=== PATIENT | female | born 1940 | race Caucasian/White ===

== ENCOUNTER 2017-08-28 12:20 | Inpatient (IN) | payer MEDICARE, OTHER ==
[~2017-08-28] VITALS: Ht 167.6 cm; Wt 82.0 kg
[2017-08-28] VITALS (11 sets, daily range): BP systolic 142–176; BP diastolic 66–99
[2017-08-28] MEDS ORDERED: aspirin 81mg tab.chew PO ONE (12:30)
[2017-08-28 13:02] LABS: BASOPHILS % (AUTO) 0.3 % (0-1); EOSINOPHILS # (AUTO) 0.2 X10'3 (0-0.9); EOSINOPHILS % (AUTO) 1.8 % (0-6); HEMATOCRIT 42.4 % (35.0-45.0); LYMPHOCYTES # (AUTO) 1.6 X10'3 (1.1-4.8); LYMPHOCYTES % (AUTO) 19.1 % (21-51); MEAN CORPUSCULAR HEMOGLOBIN 31.5 PG (27.0-31.0); MEAN CORPUSCULAR HGB CONC 35.3 % (33.0-36.5); MEAN CORPUSCULAR VOLUME 89.2 FL (78-98); MONOCYTES # (AUTO) 0.5 X10'3 (0-0.9); MONOCYTES % (AUTO) 5.6 % (2-12); NEUTROPHILS # (AUTO) 6.3 X10'3 (1.8-7.7); NEUTROPHILS % (AUTO) 73.2 % (42-75); PLATELET COUNT 224 X10'3 (140-440); RED BLOOD COUNT 4.76 X10'6 (4.20-5.60); RED CELL DISTRIBUTION WIDTH 12.6 % (11.5-14.5); WHITE BLOOD COUNT 8.6 X10'3 (4.5-11.0)
[2017-08-28 13:12] LABS: PARTIAL THROMBOPLASTIN TIME 27 SECONDS (22-32); PROTHROMBIN TIME 10.1 SECONDS (9.0-12.0)
[2017-08-28 13:24] LABS: ALANINE AMINOTRANSFERASE 36 U/L (12-78); ALBUMIN 3.9 G/DL (3.4-5.0); ALBUMIN/GLOBULIN RATIO 1.1 (1.1-1.5); ALKALINE PHOSPHATASE 67 IU/L (46-116); ANION GAP 10 (8-16); ASPARTATE AMINO TRANSFERASE 49 U/L (10-37); BILIRUBIN,TOTAL 0.4 MG/DL (0.1-1.0); BLOOD UREA NITROGEN 17 MG/DL (7-18); CALCIUM 10.1 MG/DL (8.5-10.1); CHLORIDE 106 MMOL/L (99-107); GLUCOSE 97 MG/DL (70-104); POTASSIUM 3.7 MMOL/L (3.5-5.1); SODIUM 145 MMOL/L (135-145); TOTAL CARBON DIOXIDE 29.3 MMOL/L (24-32); TOTAL PROTEIN 7.6 G/DL (6.4-8.2); eGFR 54 ML/MIN
[2017-08-28] MEDS ORDERED: aspirin 325mg tablet PO ONE (13:25)
[2017-08-28] MEDS ORDERED: enoxaparin 100mg/ml syringe SUBCUT ONE (13:25)
[2017-08-28] MEDS ORDERED: metoprolol tartrate 50mg tablet PO ONE (13:30)
[2017-08-28] MEDS ORDERED: metoprolol tartrate 1mg/ml inj IV ONE (13:30)
[2017-08-28] MEDS ORDERED: nitroGLYCERIN 0.4mg/hour patch TD ONE (13:35)
[2017-08-28] MEDS ORDERED: bisacodyl 10mg suppository rectal RC PRN (14:30)
[2017-08-28] MEDS ORDERED: acetaminophen 325mg tablet PO PRN (14:30)
[2017-08-28] MEDS ORDERED: magnesium Cl slow-release 64mg tablet PO PRN (14:30)
[2017-08-28] MEDS ORDERED: magnesium 2GM in 50ml NS 50 ML IV PRN (14:30)
[2017-08-28] MEDS ORDERED: magnesium 4gm in 100ml NS 100 ML IV PRN (14:30)
[2017-08-28] MEDS ORDERED: potassium Cl 20 mEq SR tablet PO PRN ×2 (14:30)
[2017-08-28] MEDS ORDERED: potassium Cl 40MEQ/NS 500ml 500 ML IV PRN ×2 (14:30)
[2017-08-28] MEDS ORDERED: ondansetron/PF 4mg/2ml inj IV PRN (14:30)
[2017-08-28] MEDS ORDERED: magnesium hydroxide 30ml (MOM) UD suspension PO PRN (14:30)
[2017-08-28] MEDS ORDERED: mag hydrox/Alum hydrox/simeth 30ml oral suspension PO PRN (14:30)
[2017-08-28] MEDS ORDERED: morphine 4 MG/ML inj SYRINge IV PRN ×2 (14:30)
[2017-08-28] MEDS ORDERED: nitroGLYCERIN-Tridil 50MG/D5W 250 ML IV SCH (14:34)
[2017-08-28] MEDS ORDERED: LIDOcaine 1%/PF (10mg/ml) 5ml vial ONE (15:23)
[2017-08-28] MEDS ORDERED: iohexol 350MG/ML 100ml bottle IV ONE ×2 (15:23→16:10)
[2017-08-28] MEDS ORDERED: midazolam 2 mg/2 ml injection ONE (15:45)
[2017-08-28] MEDS ORDERED: diphenhydrAMINE 50 mg/ml inj ONE (15:45)
[2017-08-28] MEDS ORDERED: heparin 1,000unit/ml 10ml vial 10 ML ONE (16:16)
[2017-08-28] MEDS ORDERED: HYDROcodone/acetaminophen 10/325mg tab PO PRN (17:15)
[2017-08-28] MEDS ORDERED: normal saline 1000ml 1,000 ML IV SCH (17:15)
[2017-08-28] MEDS ORDERED: proCHLORperazine 10 MG/2 ml inj IV PRN (17:15)
[2017-08-28] MEDS ORDERED: nitroGLYCERIN 0.4mg SUBLingual tab SL PRN (17:15)
[2017-08-28] MEDS ORDERED: HYDROcodone/acetaminophen 5mg/325mg tablet PO PRN (17:15)
[2017-08-28] MEDS ORDERED: OXAZEpam 15mg capsule PO PRN (17:15)
[2017-08-28] MEDS: metoprolol tartrate 25mg tablet PO SCH (18:18)
[2017-08-28] MEDS ORDERED: MESSAGE TO NURSING PO ONE ×4 (19:05)
[2017-08-28] MEDS ORDERED: insulin regular, human inj. 100 UNITS in normal saline 100ml IV soln 100 ML IV SCH ×2 (19:05)
[2017-08-28] MEDS ORDERED: heparin 10,000 units/1 ML INJ IV PRN (19:25)
[2017-08-28] MEDS: mupirocin 2% ointment 22GM NS SCH (20:00)
[2017-08-28] MEDS: enoxaparin 30mg/0.3ml syringe SUBCUT SCH (20:00)
[2017-08-28] MEDS ORDERED: atorvastatin 20mg tablet PO SCH (20:00)
[2017-08-28] MEDS: docusate sod 100mg capsule PO SCH (20:00)
[2017-08-28] MEDS: enoxaparin 40mg/0.4ml syringe SUBCUT SCH (20:00)
[2017-08-28 20:33] LABS: HEMATOCRIT 40.4 % (35.0-45.0); HEMOGLOBIN 13.8 g/dl (12.0-16.0); MEAN CORPUSCULAR HEMOGLOBIN 31.1 PG (27.0-31.0); MEAN CORPUSCULAR HGB CONC 34.2 % (33.0-36.5); MEAN CORPUSCULAR VOLUME 90.9 FL (78-98); MEAN PLATELET VOLUME 9.7 FL (7.4-10.4); PLATELET COUNT 222 X10'3 (140-440); RED BLOOD COUNT 4.45 X10'6 (4.20-5.60); RED CELL DISTRIBUTION WIDTH 12.8 % (11.5-14.5); WHITE BLOOD COUNT 9.6 X10'3 (4.5-11.0)
[2017-08-28 20:42] LABS: ALBUMIN 3.5 G/DL (3.4-5.0); ANION GAP 11 (8-16); BLOOD UREA NITROGEN 14 MG/DL (7-18); BUN/CREATININE RATIO 16.9 (6.6-38.0); CALCIUM 9.3 MG/DL (8.5-10.1); CHLORIDE 107 MMOL/L (99-107); CREATININE 0.83 MG/DL (0.40-0.90); GLUCOSE 97 MG/DL (70-104); POTASSIUM 3.6 MMOL/L (3.5-5.1); SODIUM 143 MMOL/L (135-145); TOTAL CARBON DIOXIDE 25.4 MMOL/L (24-32); eGFR 67 ML/MIN
[2017-08-28 20:44] LABS: HEMOGLOBIN A1C 5.1 % (4.5-6.2)
[2017-08-28 20:45] LABS: PARTIAL THROMBOPLASTIN TIME 33 SECONDS (22-32); PROTHROMBIN TIME 10.5 SECONDS (9.0-12.0)
[2017-08-28] MEDS: pantoprazole 40 MG vial IV SCH (22:29)
[2017-08-29] VITALS (16 sets, daily range): BP systolic 91–165; BP diastolic 39–88
[2017-08-29] MEDS: potassium cl 20mEq in 1/2 NS 1,000 ML IV SCH ×2 (00:19→09:37)
[2017-08-29] MEDS ORDERED: nitroGLYCERIN-Tridil 50MG/D5W 250 ML IV SCH (04:00)
[2017-08-29 05:09] LABS: BASOPHILS % (AUTO) 0.2 % (0-1); EOSINOPHILS # (AUTO) 0.2 X10'3 (0-0.9); EOSINOPHILS % (AUTO) 2.2 % (0-6); HEMATOCRIT 38.7 % (35.0-45.0); HEMOGLOBIN 13.7 g/dl (12.0-16.0); LYMPHOCYTES # (AUTO) 1.6 X10'3 (1.1-4.8); MEAN CORPUSCULAR HEMOGLOBIN 31.8 PG (27.0-31.0); MEAN CORPUSCULAR HGB CONC 35.3 % (33.0-36.5); MEAN CORPUSCULAR VOLUME 90.1 FL (78-98); MEAN PLATELET VOLUME 9.9 FL (7.4-10.4); MONOCYTES # (AUTO) 0.6 X10'3 (0-0.9); MONOCYTES % (AUTO) 6.7 % (2-12); NEUTROPHILS # (AUTO) 6.5 X10'3 (1.8-7.7); NEUTROPHILS % (AUTO) 72.9 % (42-75); PLATELET COUNT 189 X10'3 (140-440); RED BLOOD COUNT 4.29 X10'6 (4.20-5.60); RED CELL DISTRIBUTION WIDTH 12.4 % (11.5-14.5); WHITE BLOOD COUNT 8.9 X10'3 (4.5-11.0)
[2017-08-29 05:19] LABS: PROTHROMBIN TIME 10.6 SECONDS (9.0-12.0)
[2017-08-29 05:27] LABS: ALBUMIN 3.2 G/DL (3.4-5.0); ANION GAP 9 (8-16); BLOOD UREA NITROGEN 14 MG/DL (7-18); BUN/CREATININE RATIO 13.7 (6.6-38.0); CHLORIDE 107 MMOL/L (99-107); CHOL/HDL RATIO 4.3 (0.00-4.99); CHOLESTEROL 194 MG/DL (0-200); CREATININE 1.02 MG/DL (0.40-0.90); GLUCOSE 96 MG/DL (70-104); HDL CHOLESTEROL 45 MG/DL (35-60); LDL CHOLESTEROL 112 MG/DL (50-100); MAGNESIUM 1.6 MG/DL (1.5-2.4); SODIUM 144 MMOL/L (135-145); TOTAL CARBON DIOXIDE 28.5 MMOL/L (24-32); TRIGLYCERIDES 197 MG/DL (20-135); eGFR 53 ML/MIN
[2017-08-29] MEDS ORDERED: ringers solution, lacted 1,000 ML IV ONE (07:06)
[2017-08-29] MEDS: metoprolol tartrate 25mg tablet PO SCH (07:15)
[2017-08-29] MEDS: pantoprazole 40 MG vial IV SCH (07:15)
[2017-08-29] MEDS ORDERED: albumin (human) 25% 100 ML IV solution IV ONE (08:00)
[2017-08-29] MEDS ORDERED: heparin 10,000 units/1 ML INJ ONE ×2 (08:00)
[2017-08-29] MEDS ORDERED: K and/or MAG REPLACEMENT MC SCH (08:00)
[2017-08-29] MEDS ORDERED: sodium bicarbonate (8.4%) 1 mEq/ml syringe ONE (08:00)
[2017-08-29] MEDS ORDERED: potassium Cl 2 mEq/ml inj IV ONE (08:00)
[2017-08-29] MEDS: enoxaparin 30mg/0.3ml syringe SUBCUT SCH (08:00)
[2017-08-29] MEDS ORDERED: aspirin 81mg tablet.DR PO SCH (08:00)
[2017-08-29] MEDS ORDERED: phenylephrine 10mg/ml inj IV ONE ×2 (08:00→11:59)
[2017-08-29] MEDS: docusate sod 100mg capsule PO SCH ×2 (08:00→20:00)
[2017-08-29] MEDS: enoxaparin 40mg/0.4ml syringe SUBCUT SCH (08:00)
[2017-08-29] MEDS ORDERED: LIDOcaine 2% (20 mg/ml) 5ml cardiac syringe ONE (08:00)
[2017-08-29] MEDS ORDERED: heparin 1,000 units/ml 10ml inj ONE (08:00)
[2017-08-29] MEDS ORDERED: papaverine 30 mg/ml 2ml inj. ONE (08:00)
[2017-08-29] MEDS ORDERED: tranexamic acid 100mg/ml inj. ONE ×2 (08:00→09:23)
[2017-08-29] MEDS ORDERED: magnesium sulf 1 GM/2 ML ONE (08:00)
[2017-08-29 08:20] LABS: ABG BASE EXCESS 2.2 mmol/L (-2.0-3.0); ABG HCO3 26.3 mmol/L (22.0-26.0); ABG OXYGEN SATURATION 93.3 % (95-98); ABG PCO2 (T) 39.4 mmHg (32.0-45.0); ABG PH (T) 7.443 (7.350-7.450); ABG PO2 (T) 65.3 mmHg (83-108); ALLEN'S TEST Positive; FCOHb 0.9 % (0.5-1.5); FMetHb 0.3 % (0.3-1.12); FO2Hb 92.2 % (94-100)
[2017-08-29] MEDS ORDERED: MESSAGE TO NURSING PO ONE (10:00)
[2017-08-29] MEDS: mupirocin 2% ointment 22GM NS SCH (11:29)
[2017-08-29] MEDS ORDERED: famotidine 20mg tablet PO ONE (11:50)
[2017-08-29] MEDS ORDERED: LORazepam 2 mg/ml vial IV ONE (11:50)
[2017-08-29] MEDS: insulin regular, human inj. 100 UNITS in normal saline 100ml IV soln 100 ML IV SCH ×2 (11:55)
[2017-08-29] MEDS ORDERED: MIDAZolam 1mg/ml 10ml vial ONE (11:58)
[2017-08-29] MEDS ORDERED: SUFENTANIL CITRATE 50 MCG/ML 2ml ampule IV ONE (11:58)
[2017-08-29] MEDS ORDERED: rocuronium 10mg/ml inj IV ONE ×2 (11:59→17:01)
[2017-08-29] MEDS ORDERED: LIDOcaine 2% (20mg/ml) 5ml vial ONE (11:59)
[2017-08-29] MEDS ORDERED: etomidate 2mg/ml inj. ONE (11:59)
[2017-08-29 12:46] LABS: ABG BASE EXCESS -1.6 mmol/L (-2.0-3.0); ABG HCO3 22.9 mmol/L (22.0-26.0); ABG OXYGEN SATURATION 99.3 % (95-98); ABG PCO2 37.7 mmHg (35.0-45.0); ABG PH 7.401 (7.350-7.450); CL (ABG) 109 mmol/L (99-107); FCOHb 0.9 % (0.5-1.5); FMetHb 0.4 % (0.3-1.12); GLUCOSE (ABG) 94 mg/dl (70-105); IONIZED CA (ABG) 1.16 mmol/L (1.03-1.32); K (ABG) 3.5 mmol/L (3.3-5.1); NA (ABG) 138 mmol/L (135-145); TOTAL HEMOGLOBIN 12.9 G/dl (12.0-16.0)
[2017-08-29] MEDS ORDERED: tranexamic acid inj. 750 MG in normal saline 100ml IV soln 92.5 ML IV ONE (12:50)
[2017-08-29] MEDS ORDERED: heparin 10,000 units/1 ML INJ IR ONE (12:59)
[2017-08-29] MEDS ORDERED: papaverine 30 mg/ml 2ml inj. IA ONE (13:00)
[2017-08-29] MEDS ORDERED: vancomycin/NS 1 GM ADD-VANTAGE 250 ML IV ONE (13:00)
[2017-08-29] MEDS ORDERED: dextrose 50%-water 50ml dispensing syringe IV PRN ×2 (13:00→19:25)
[2017-08-29 13:25] LABS: ABG BASE EXCESS VENOUS -3.9 mmol/L; ABG PCO2 VENOUS 49.3 mmHg; ABG PO2 VENOUS 41.1 mmHg; CL (ABG) 108 mmol/L (99-107); FCOHb VENOUS 1.2 %; FHHb VENOUS 25.6 %; FMetHb VENOUS 0.3 %; FO2Hb VENOUS 72.9 %; GLUCOSE (ABG) 104 mg/dl (70-105); IONIZED CA (ABG) 1.16 mmol/L (1.03-1.32); K (ABG) 3.3 mmol/L (3.3-5.1); NA (ABG) 140 mmol/L (135-145); TOTAL HEMOGLOBIN 12.8 G/dl (12.0-16.0)
[2017-08-29 13:31] LABS: ACT @ 1.70 U 307 SEC (193-297); ACT @ 2.84 U 418 SEC (260-420); BASELINE ACT 155 SEC (101-148); PATIENT WEIGHT 72.0k KG
[2017-08-29 13:50] LABS: ABG BASE EXCESS -1.3 mmol/L (-2.0-3.0); ABG HCO3 23.3 mmol/L (22.0-26.0); ABG PCO2 38.6 mmHg (35.0-45.0); ABG PH 7.399 (7.350-7.450); ABG PO2 400.5 mmHg (60.0-100.0); CL (ABG) 107 mmol/L (99-107); FCOHb 0.2 % (0.5-1.5); FMetHb 0.3 % (0.3-1.12); FO2Hb 98.5 % (94-100); GLUCOSE (ABG) 106 mg/dl (70-105); IONIZED CA (ABG) 1.01 mmol/L (1.03-1.32); K (ABG) 4.6 mmol/L (3.3-5.1); NA (ABG) 139 mmol/L (135-145); TOTAL HEMOGLOBIN 9.8 G/dl (12.0-16.0)
[2017-08-29 14:11] LABS: ABG BASE EXCESS VENOUS -1.6 mmol/L; ABG HCO3 VENOUS 23.4 mmol/L; ABG PCO2 VENOUS 40.8 mmHg; ABG PO2 VENOUS 50.3 mmHg; CL (ABG) 107 mmol/L (99-107); FCOHb VENOUS 0.9 %; FHHb VENOUS 13.7 %; FMetHb VENOUS 0.1 %; FO2Hb VENOUS 85.3 %; GLUCOSE (ABG) 106 mg/dl (70-105); IONIZED CA (ABG) 1.07 mmol/L (1.03-1.32); K (ABG) 5.4 mmol/L (3.3-5.1); NA (ABG) 138 mmol/L (135-145)
[2017-08-29] MEDS: insulin Lispro (HumaLOG) vial - multi-dose SQ SCH ×2 (14:14→14:15)
[2017-08-29] MEDS ORDERED: ipratropium/albuterol 3ml nebule IH PRN (14:15)
[2017-08-29 14:40] LABS: ABG BASE EXCESS VENOUS -1.9 mmol/L; ABG HCO3 VENOUS 22.5 mmol/L; ABG PCO2 VENOUS 36.8 mmHg; CL (ABG) 107 mmol/L (99-107); FCOHb VENOUS 1.2 %; FHHb VENOUS 17.2 %; FMetHb VENOUS 0.1 %; FO2Hb VENOUS 81.5 %; GLUCOSE (ABG) 103 mg/dl (70-105); IONIZED CA (ABG) 1.03 mmol/L (1.03-1.32); K (ABG) 5.1 mmol/L (3.3-5.1); NA (ABG) 139 mmol/L (135-145); TOTAL HEMOGLOBIN 9.2 G/dl (12.0-16.0)
[2017-08-29 14:40] LABS: ABG BASE EXCESS -1.4 mmol/L (-2.0-3.0); ABG HCO3 22.4 mmol/L (22.0-26.0); ABG OXYGEN SATURATION 99.3 % (95-98); ABG PH 7.437 (7.350-7.450); ABG PO2 385.9 mmHg (60.0-100.0); CL (ABG) 108 mmol/L (99-107); FMetHb 0.2 % (0.3-1.12); FO2Hb 98.1 % (94-100); GLUCOSE (ABG) 103 mg/dl (70-105); IONIZED CA (ABG) 1.03 mmol/L (1.03-1.32); NA (ABG) 138 mmol/L (135-145)
[2017-08-29 15:30] LABS: ABG BASE EXCESS 1.7 mmol/L (-2.0-3.0); ABG HCO3 26.2 mmol/L (22.0-26.0); ABG OXYGEN SATURATION 98.9 % (95-98); ABG PCO2 40.5 mmHg (35.0-45.0); ABG PH 7.428 (7.350-7.450); ABG PO2 375.9 mmHg (60.0-100.0); CL (ABG) 109 mmol/L (99-107); FCOHb 0.4 % (0.5-1.5); FMetHb 0.4 % (0.3-1.12); FO2Hb 98.1 % (94-100); GLUCOSE (ABG) 126 mg/dl (70-105); IONIZED CA (ABG) 1.23 mmol/L (1.03-1.32); K (ABG) 4.9 mmol/L (3.3-5.1); NA (ABG) 136 mmol/L (135-145); TOTAL HEMOGLOBIN 8.8 G/dl (12.0-16.0)
[2017-08-29] MEDS ORDERED: OMEP-50 (15:45)
[2017-08-29] MEDS ORDERED: OMEP40CA37 (15:45)
[2017-08-29] MEDS ORDERED: MELO-100 (15:45)
[2017-08-29] MEDS ORDERED: ESTR1TAB28 (15:45)
[2017-08-29] MEDS ORDERED: MULT-955 PO (15:46)
[2017-08-29 16:25] LABS: ABG HCO3 24.6 mmol/L (22.0-26.0); ABG OXYGEN SATURATION 99.1 % (95-98); ABG PCO2 45.2 mmHg (35.0-45.0); ABG PH 7.354 (7.350-7.450); ABG PO2 360.5 mmHg (60.0-100.0); CL (ABG) 112 mmol/L (99-107); FCOHb 0.5 % (0.5-1.5); FMetHb 0.6 % (0.3-1.12); GLUCOSE (ABG) 152 mg/dl (70-105); IONIZED CA (ABG) 1.17 mmol/L (1.03-1.32); K (ABG) 5.3 mmol/L (3.3-5.1); NA (ABG) 138 mmol/L (135-145); TOTAL HEMOGLOBIN 9.1 G/dl (12.0-16.0)
[2017-08-29] MEDS ORDERED: sodium bicarbonate 1 MEQ/1 ml inj ONE ×2 (16:43→18:35)
[2017-08-29] MEDS ORDERED: magnesium 1 GM/2 ML inj ONE (16:43)
[2017-08-29 16:46] LABS: ABG HCO3 21.3 mmol/L (22.0-26.0); ABG OXYGEN SATURATION 98.9 % (95-98); ABG PCO2 39.6 mmHg (35.0-45.0); ABG PH 7.349 (7.350-7.450); ABG PO2 349.9 mmHg (60.0-100.0); CL (ABG) 110 mmol/L (99-107); FCOHb 0.2 % (0.5-1.5); FMetHb 0.4 % (0.3-1.12); FO2Hb 98.3 % (94-100); GLUCOSE (ABG) 140 mg/dl (70-105); IONIZED CA (ABG) 1.19 mmol/L (1.03-1.32); K (ABG) 5.1 mmol/L (3.3-5.1); NA (ABG) 137 mmol/L (135-145); TOTAL HEMOGLOBIN 9.4 G/dl (12.0-16.0)
[2017-08-29 17:20] LABS: ABG BASE EXCESS 0.9 mmol/L (-2.0-3.0); ABG HCO3 25.8 mmol/L (22.0-26.0); ABG OXYGEN SATURATION 98.9 % (95-98); ABG PCO2 42.6 mmHg (35.0-45.0); ABG PO2 345.2 mmHg (60.0-100.0); CL (ABG) 113 mmol/L (99-107); FCOHb 0.6 % (0.5-1.5); FMetHb 0.6 % (0.3-1.12); FO2Hb 97.7 % (94-100); GLUCOSE (ABG) 157 mg/dl (70-105); IONIZED CA (ABG) 1.04 mmol/L (1.03-1.32); K (ABG) 4.6 mmol/L (3.3-5.1); NA (ABG) 140 mmol/L (135-145); TOTAL HEMOGLOBIN 7.6 G/dl (12.0-16.0)
[2017-08-29 18:15] LABS: ABG BASE EXCESS -4.3 mmol/L (-2.0-3.0); ABG HCO3 20.7 mmol/L (22.0-26.0); ABG OXYGEN SATURATION 98.6 % (95-98); ABG PCO2 37.4 mmHg (35.0-45.0); ABG PH 7.361 (7.350-7.450); ABG PO2 193.2 mmHg (60.0-100.0); CL (ABG) 114 mmol/L (99-107); FCOHb 0.7 % (0.5-1.5); FMetHb 0.4 % (0.3-1.12); FO2Hb 97.5 % (94-100); GLUCOSE (ABG) 208 mg/dl (70-105); IONIZED CA (ABG) 1.06 mmol/L (1.03-1.32); K (ABG) 3.4 mmol/L (3.3-5.1); NA (ABG) 143 mmol/L (135-145); TOTAL HEMOGLOBIN 7.9 G/dl (12.0-16.0)
[2017-08-29 18:36] LABS: ABG BASE EXCESS -5.9 mmol/L (-2.0-3.0); ABG HCO3 20.1 mmol/L (22.0-26.0); ABG OXYGEN SATURATION 74.8 % (95-98); ABG PCO2 41.7 mmHg (35.0-45.0); ABG PO2 44.3 mmHg (60.0-100.0); CL (ABG) 114 mmol/L (99-107); FCOHb 1.2 % (0.5-1.5); FMetHb 0.7 % (0.3-1.12); FO2Hb 73.4 % (94-100); GLUCOSE (ABG) 187 mg/dl (70-105); IONIZED CA (ABG) 1.07 mmol/L (1.03-1.32); K (ABG) 3.1 mmol/L (3.3-5.1); NA (ABG) 144 mmol/L (135-145); TOTAL HEMOGLOBIN 7.9 G/dl (12.0-16.0)
[2017-08-29] MEDS ORDERED: morphine /PF 1mg/ml 10ml inj. ONE (19:08)
[2017-08-29 19:17] LABS: BASOPHILS % (AUTO) 0 % (0-1); EOSINOPHILS # (AUTO) 0.1 X10'3 (0-0.9); EOSINOPHILS % (AUTO) 0.4 % (0-6); LYMPHOCYTES # (AUTO) 0.8 X10'3 (1.1-4.8); LYMPHOCYTES % (AUTO) 6.2 % (21-51); MEAN CORPUSCULAR HEMOGLOBIN 31.7 PG (27.0-31.0); MEAN CORPUSCULAR HGB CONC 35.3 % (33.0-36.5); MEAN CORPUSCULAR VOLUME 89.8 FL (78-98); MEAN PLATELET VOLUME 8.8 FL (7.4-10.4); MONOCYTES # (AUTO) 0.6 X10'3 (0-0.9); MONOCYTES % (AUTO) 4.7 % (2-12); NEUTROPHILS # (AUTO) 11.1 X10'3 (1.8-7.7); NEUTROPHILS % (AUTO) 88.7 % (42-75); PLATELET COUNT 78 X10'3 (140-440); RED BLOOD COUNT 2.07 X10'6 (4.20-5.60); RED CELL DISTRIBUTION WIDTH 12.6 % (11.5-14.5); WHITE BLOOD COUNT 12.5 X10'3 (4.5-11.0)
[2017-08-29 19:24] LABS: INR 1.5 INR; PARTIAL THROMBOPLASTIN TIME 37 SECONDS (22-32); PROTHROMBIN TIME 15.2 SECONDS (9.0-12.0)
[2017-08-29] MEDS ORDERED: niCARDipine/sod cl 20mg/200ml 200 ML IV PRN (19:25)
[2017-08-29] MEDS ORDERED: metoclopramide 5 mg/ml inj IV PRN (19:25)
[2017-08-29] MEDS: epiNEPHrine inj 5 MG, calcium chloride inj. 1,000 MG in normal saline 250ml IV soln 250 ML IV SCH (19:25)
[2017-08-29] MEDS ORDERED: normal saline 250ml IV soln 250 ML IV PRN (19:25)
[2017-08-29] MEDS ORDERED: magnesium 4gm in 100ml NS 100 ML IV PRN (19:25)
[2017-08-29] MEDS ORDERED: sodium phosphate inj. 30 MMOL in dextrose 5%-water 250 ML IV PRN (19:25)
[2017-08-29] MEDS ORDERED: magnesium hydroxide 30ml (MOM) UD suspension PO PRN (19:25)
[2017-08-29] MEDS ORDERED: HYDROcodone/acetaminophen 10/325mg tab PO PRN ×2 (19:25)
[2017-08-29] MEDS ORDERED: Neutra Phos packet PO PRN (19:25)
[2017-08-29] MEDS ORDERED: insulin regular, human inj. 100 UNITS in normal saline 100ml IV soln 100 ML IV SCH ×2 (19:25)
[2017-08-29] MEDS ORDERED: sodium phosphate inj. 15 MMOL in dextrose 5%-water 150 ML IV PRN (19:25)
[2017-08-29] MEDS: sodium chloride 0.45% 1,000 ML IV SCH (19:25)
[2017-08-29] MEDS ORDERED: morphine 4 MG/ML inj SYRINge IV PRN ×2 (19:25)
[2017-08-29] MEDS ORDERED: DOPamine 400mg/D5W 250ml 250 ML IV PRN (19:25)
[2017-08-29] MEDS ORDERED: ondansetron/PF 4mg/2ml inj IV PRN (19:25)
[2017-08-29] MEDS ORDERED: potassium Cl 20mEq/100mL bag 100 ML IV PRN ×2 (19:25)
[2017-08-29] MEDS ORDERED: nitroGLYCERIN-Tridil 50MG/D5W 250 ML IV PRN (19:25)
[2017-08-29 19:27] LABS: HEMOGLOBIN 6.5 g/dl (12.0-16.0)
[2017-08-29 19:28] LABS: HEMATOCRIT 18.6 % (35.0-45.0)
[2017-08-29] MEDS ORDERED: HYDROmorphone 1 mg/ml syringe IV PRN (19:30)
[2017-08-29] MEDS ORDERED: HYDROmorphone inj. 0.5 MG/0.5 ML DISP.SYRIN IV PRN (19:30)
[2017-08-29 19:49] LABS: BASOPHILS % (AUTO) 0.2 % (0-1); EOSINOPHILS % (AUTO) 0.2 % (0-6); HEMATOCRIT 22.7 % (35.0-45.0); HEMOGLOBIN 7.8 g/dl (12.0-16.0); LYMPHOCYTES # (AUTO) 0.8 X10'3 (1.1-4.8); MEAN CORPUSCULAR HEMOGLOBIN 31.5 PG (27.0-31.0); MEAN CORPUSCULAR HGB CONC 34.4 % (33.0-36.5); MEAN CORPUSCULAR VOLUME 91.5 FL (78-98); MEAN PLATELET VOLUME 8.9 FL (7.4-10.4); MONOCYTES # (AUTO) 0.7 X10'3 (0-0.9); MONOCYTES % (AUTO) 5.9 % (2-12); NEUTROPHILS # (AUTO) 10.1 X10'3 (1.8-7.7); NEUTROPHILS % (AUTO) 86.7 % (42-75); PLATELET COUNT 81 X10'3 (140-440); RED BLOOD COUNT 2.48 X10'6 (4.20-5.60); RED CELL DISTRIBUTION WIDTH 12.4 % (11.5-14.5); WHITE BLOOD COUNT 11.6 X10'3 (4.5-11.0)
[2017-08-29] MEDS ORDERED: propofol 1000mg/100ml bottle 100 ML IV PRN (19:52)
[2017-08-29 20:02] LABS: INR 1.3 INR; PARTIAL THROMBOPLASTIN TIME 38 SECONDS (22-32); PROTHROMBIN TIME 13.3 SECONDS (9.0-12.0)
[2017-08-29 20:04] LABS: ALANINE AMINOTRANSFERASE 28 U/L (12-78); ALBUMIN 2.3 G/DL (3.4-5.0); ALKALINE PHOSPHATASE 21 IU/L (46-116); ANION GAP 11 (8-16); ASPARTATE AMINO TRANSFERASE 101 U/L (10-37); BLOOD UREA NITROGEN 14 MG/DL (7-18); BUN/CREATININE RATIO 11.3 (6.6-38.0); CALCIUM 7.1 MG/DL (8.5-10.1); CHLORIDE 115 MMOL/L (99-107); CREATININE 1.24 MG/DL (0.40-0.90); GLUCOSE 115 MG/DL (70-104); PHOSPHORUS 2.5 MG/DL (2.3-4.5); POTASSIUM 3.5 MMOL/L (3.5-5.1); SODIUM 153 MMOL/L (135-145); TOTAL CARBON DIOXIDE 27.1 MMOL/L (24-32); eGFR 42 ML/MIN
[2017-08-29 20:21] LABS: ALBUMIN/GLOBULIN RATIO 1.5 (1.1-1.5); TOTAL PROTEIN 3.8 G/DL (6.4-8.2)
[2017-08-29] MEDS ORDERED: DOBUTamine-DoBUTrex 500mg/D5W 250 ML IV ONE (20:43)
[2017-08-29 20:51] LABS: ABG HCO3 22.3 mmol/L (22.0-26.0); ABG OXYGEN SATURATION 98.8 % (95-98); ABG PCO2 (T) 39.9 mmHg (32.0-45.0); ABG PH (T) 7.363 (7.350-7.450); ABG PO2 (T) 261.8 mmHg (83-108); FCOHb 0.1 % (0.5-1.5); FMetHb 0.1 % (0.3-1.12); FO2Hb 98.6 % (94-100); MINUTE VOLUME 7 L/min; PATIENT TEMPERATURE 36.6; PEEP 5 cm H2O; RESPIRATORY RATE 10 b/min; RESPIRATORY RATE (OBSERVED) 12 b/min; TIDAL VOLUME 550 mL; TOTAL HEMOGLOBIN 7.6 G/dl (12.0-16.0)
[2017-08-30] VITALS (30 sets, daily range): BP systolic 72–137; BP diastolic 40–61
[2017-08-30] MEDS: vancomycin/NS 1 GM ADD-VANTAGE 250 ML IV SCH ×3 (00:47→20:00)
[2017-08-30] MEDS: mupirocin 2% ointment 22GM NS SCH ×3 (00:47→20:00)
[2017-08-30] MEDS: FENTANYL-0.9 % NACL/PF 100 ML IV PRN ×2 (01:07→21:36)
[2017-08-30] MEDS: midazolam 100mg in NS 100ml 100 ML IV PRN ×2 (01:09→16:32)
[2017-08-30 01:35] LABS: BASOPHILS % (AUTO) 0 % (0-1); EOSINOPHILS % (AUTO) 0 % (0-6); HEMATOCRIT 27.2 % (35.0-45.0); HEMOGLOBIN 9.2 g/dl (12.0-16.0); LYMPHOCYTES # (AUTO) 0.5 X10'3 (1.1-4.8); LYMPHOCYTES % (AUTO) 4.1 % (21-51); MEAN CORPUSCULAR HEMOGLOBIN 30.3 PG (27.0-31.0); MEAN CORPUSCULAR VOLUME 89.2 FL (78-98); MEAN PLATELET VOLUME 8.7 FL (7.4-10.4); MONOCYTES # (AUTO) 0.7 X10'3 (0-0.9); NEUTROPHILS # (AUTO) 10.6 X10'3 (1.8-7.7); NEUTROPHILS % (AUTO) 89.9 % (42-75); PLATELET COUNT 124 X10'3 (140-440); RED BLOOD COUNT 3.05 X10'6 (4.20-5.60); RED CELL DISTRIBUTION WIDTH 13.5 % (11.5-14.5); WHITE BLOOD COUNT 11.8 X10'3 (4.5-11.0)
[2017-08-30 01:50] LABS: ALANINE AMINOTRANSFERASE 32 U/L (12-78); ALBUMIN 2.8 G/DL (3.4-5.0); ALBUMIN/GLOBULIN RATIO 1.8 (1.1-1.5); ALKALINE PHOSPHATASE 30 IU/L (46-116); ANION GAP 7 (8-16); ASPARTATE AMINO TRANSFERASE 139 U/L (10-37); BILIRUBIN,TOTAL 1.3 MG/DL (0.1-1.0); BLOOD UREA NITROGEN 16 MG/DL (7-18); BUN/CREATININE RATIO 15.1 (6.6-38.0); CALCIUM 7.4 MG/DL (8.5-10.1); CHLORIDE 115 MMOL/L (99-107); CREATININE 1.06 MG/DL (0.40-0.90); GLUCOSE 141 MG/DL (70-104); MAGNESIUM 2.8 MG/DL (1.5-2.4); PHOSPHORUS 2.3 MG/DL (2.3-4.5); SODIUM 150 MMOL/L (135-145); TOTAL CARBON DIOXIDE 27.9 MMOL/L (24-32); TOTAL PROTEIN 4.4 G/DL (6.4-8.2); eGFR 50 ML/MIN
[2017-08-30 01:57] LABS: INR 1.1 INR; PROTHROMBIN TIME 11.4 SECONDS (9.0-12.0)
[2017-08-30 02:01] LABS: PARTIAL THROMBOPLASTIN TIME 91 SECONDS (22-32)
[2017-08-30 04:21] LABS: ABG BASE EXCESS 2.9 mmol/L (-2.0-3.0); ABG HCO3 27.9 mmol/L (22.0-26.0); ABG OXYGEN SATURATION 96.1 % (95-98); ABG PCO2 (T) 45.6 mmHg (32.0-45.0); ABG PH (T) 7.406 (7.350-7.450); ABG PO2 (T) 87.2 mmHg (83-108); FCOHb 0.3 % (0.5-1.5); FMetHb 0.3 % (0.3-1.12); FO2Hb 95.5 % (94-100); MINUTE VOLUME 6 L/min; PATIENT TEMPERATURE 37.3; PEEP 5 cm H2O; RESPIRATORY RATE 10 b/min; RESPIRATORY RATE (OBSERVED) 10 b/min; TIDAL VOLUME 550 mL; TOTAL HEMOGLOBIN 9.2 G/dl (12.0-16.0)
[2017-08-30] MEDS: potassium Cl 20mEq/100mL bag 100 ML IV PRN (04:48)
[2017-08-30 05:06] LABS: ACTIVATED CLOTTING TIME 117 SEC (101-148)
[2017-08-30] MEDS ORDERED: LORazepam 2 mg/ml vial IV ONE (06:00)
[2017-08-30] MEDS ORDERED: famotidine 20mg tablet PO ONE (06:00)
[2017-08-30] MEDS: albumin (Human) 5% 250ml 250 ML IV PRN ×2 (07:28→08:28)
[2017-08-30] MEDS: pantoprazole 40mg Tablet.DR PO SCH (07:30)
[2017-08-30] MEDS ORDERED: pantoprazole 40 MG vial IV ONE (07:40)
[2017-08-30] MEDS: atorvastatin 10mg tablet PO SCH (08:00)
[2017-08-30] MEDS: aspirin 325mg tablet, delayed-release (Ecotrin) PO SCH (08:00)
[2017-08-30] MEDS: sodium chloride 0.45% 1,000 ML IV SCH (08:00)
[2017-08-30] MEDS: docusate sod 100mg capsule PO SCH ×2 (08:00→19:43)
[2017-08-30] MEDS: metoprolol tartrate 12.5mg (1/2 tablet) PO SCH ×2 (08:00→19:43)
[2017-08-30] MEDS: insulin Lispro (HumaLOG) vial - multi-dose SQ SCH ×3 (08:02→15:14)
[2017-08-30 10:42] LABS: BASOPHILS % (AUTO) 0.1 % (0-1); EOSINOPHILS % (AUTO) 0 % (0-6); LYMPHOCYTES # (AUTO) 0.6 X10'3 (1.1-4.8); LYMPHOCYTES % (AUTO) 7.5 % (21-51); MEAN CORPUSCULAR HEMOGLOBIN 30.9 PG (27.0-31.0); MEAN CORPUSCULAR HGB CONC 34.7 % (33.0-36.5); MEAN CORPUSCULAR VOLUME 88.9 FL (78-98); MONOCYTES # (AUTO) 0.6 X10'3 (0-0.9); NEUTROPHILS % (AUTO) 85.4 % (42-75); PLATELET COUNT 94 X10'3 (140-440); RED BLOOD COUNT 2.24 X10'6 (4.20-5.60); RED CELL DISTRIBUTION WIDTH 14.4 % (11.5-14.5); WHITE BLOOD COUNT 8.2 X10'3 (4.5-11.0)
[2017-08-30 10:46] LABS: HEMATOCRIT 19.9 % (35.0-45.0); HEMOGLOBIN 6.9 g/dl (12.0-16.0)
[2017-08-30 10:55] LABS: ALBUMIN 2.9 G/DL (3.4-5.0); ANION GAP 9 (8-16); BLOOD UREA NITROGEN 20 MG/DL (7-18); CALCIUM 7.1 MG/DL (8.5-10.1); CHLORIDE 117 MMOL/L (99-107); CREATININE 1.11 MG/DL (0.40-0.90); GLUCOSE 102 MG/DL (70-104); MAGNESIUM 2.5 MG/DL (1.5-2.4); PHOSPHORUS 3.5 MG/DL (2.3-4.5); POTASSIUM 4.4 MMOL/L (3.5-5.1); SODIUM 151 MMOL/L (135-145); TOTAL CARBON DIOXIDE 25.4 MMOL/L (24-32); eGFR 48 ML/MIN
[2017-08-30] MEDS: insulin regular, human inj. 100 UNITS in normal saline 100ml IV soln 100 ML IV SCH ×2 (11:55)
[2017-08-30] MEDS ORDERED: nitroGLYCERIN in D5W 50mg/250ml (Tridil) infusion IV ONE (12:03)
[2017-08-30] MEDS ORDERED: isoflurane 100ml inhalation liquid IH ONE (12:03)
[2017-08-30] MEDS ORDERED: DOPamine/D5W 400mg/250ml bag IV ONE (12:03)
[2017-08-30] MEDS ORDERED: protamine sulf. 10mg/ml inj. IV ONE (12:03)
[2017-08-30 15:29] LABS: BASOPHILS % (AUTO) 0.1 % (0-1); EOSINOPHILS # (AUTO) 0.1 X10'3 (0-0.9); EOSINOPHILS % (AUTO) 1.2 % (0-6); HEMATOCRIT 26.8 % (35.0-45.0); HEMOGLOBIN 9.3 g/dl (12.0-16.0); LYMPHOCYTES # (AUTO) 0.7 X10'3 (1.1-4.8); LYMPHOCYTES % (AUTO) 6.2 % (21-51); MEAN CORPUSCULAR HEMOGLOBIN 30.7 PG (27.0-31.0); MEAN CORPUSCULAR HGB CONC 34.7 % (33.0-36.5); MEAN CORPUSCULAR VOLUME 88.5 FL (78-98); MEAN PLATELET VOLUME 9.3 FL (7.4-10.4); MONOCYTES # (AUTO) 0.8 X10'3 (0-0.9); MONOCYTES % (AUTO) 7.1 % (2-12); NEUTROPHILS % (AUTO) 85.4 % (42-75); PLATELET COUNT 105 X10'3 (140-440); RED BLOOD COUNT 3.03 X10'6 (4.20-5.60); RED CELL DISTRIBUTION WIDTH 14.9 % (11.5-14.5); WHITE BLOOD COUNT 10.6 X10'3 (4.5-11.0)
[2017-08-30 15:48] LABS: ALBUMIN 2.9 G/DL (3.4-5.0); ANION GAP 11 (8-16); BLOOD UREA NITROGEN 23 MG/DL (7-18); BUN/CREATININE RATIO 20.2 (6.6-38.0); CALCIUM 7.5 MG/DL (8.5-10.1); CHLORIDE 115 MMOL/L (99-107); CREATININE 1.14 MG/DL (0.40-0.90); GLUCOSE 134 MG/DL (70-104); MAGNESIUM 2.7 MG/DL (1.5-2.4); PHOSPHORUS 3.8 MG/DL (2.3-4.5); SODIUM 150 MMOL/L (135-145); TOTAL CARBON DIOXIDE 23.6 MMOL/L (24-32); eGFR 46 ML/MIN
[2017-08-30 15:50] LABS: POTASSIUM 4.8 MMOL/L (3.5-5.1)
[2017-08-31] VITALS (24 sets, daily range): BP systolic 90–140; BP diastolic 49–80
[2017-08-31 01:38] LABS: BASOPHILS # (AUTO) 0.2 X10'3 (0-0.2); BASOPHILS % (AUTO) 1.9 % (0-1); EOSINOPHILS % (AUTO) 0.2 % (0-6); HEMATOCRIT 27.5 % (35.0-45.0); HEMOGLOBIN 9.3 g/dl (12.0-16.0); LYMPHOCYTES # (AUTO) 0.8 X10'3 (1.1-4.8); LYMPHOCYTES % (AUTO) 6.9 % (21-51); MEAN CORPUSCULAR HEMOGLOBIN 30.4 PG (27.0-31.0); MEAN CORPUSCULAR HGB CONC 33.7 % (33.0-36.5); MEAN CORPUSCULAR VOLUME 90.3 FL (78-98); MEAN PLATELET VOLUME 9.7 FL (7.4-10.4); MONOCYTES # (AUTO) 0.9 X10'3 (0-0.9); MONOCYTES % (AUTO) 7.7 % (2-12); NEUTROPHILS % (AUTO) 83.3 % (42-75); PLATELET COUNT 90 X10'3 (140-440); RED BLOOD COUNT 3.04 X10'6 (4.20-5.60); RED CELL DISTRIBUTION WIDTH 14.4 % (11.5-14.5); WHITE BLOOD COUNT 11.9 X10'3 (4.5-11.0)
[2017-08-31 01:49] LABS: ALBUMIN 2.8 G/DL (3.4-5.0); ANION GAP 10 (8-16); BLOOD UREA NITROGEN 29 MG/DL (7-18); CALCIUM 7.3 MG/DL (8.5-10.1); CHLORIDE 116 MMOL/L (99-107); CREATININE 1.16 MG/DL (0.40-0.90); GLUCOSE 137 MG/DL (70-104); MAGNESIUM 2.6 MG/DL (1.5-2.4); PHOSPHORUS 3.8 MG/DL (2.3-4.5); POTASSIUM 4.1 MMOL/L (3.5-5.1); SODIUM 149 MMOL/L (135-145); TOTAL CARBON DIOXIDE 22.8 MMOL/L (24-32); eGFR 45 ML/MIN
[2017-08-31 03:11] LABS: ABG BASE EXCESS -4.1 mmol/L (-2.0-3.0); ABG HCO3 20.7 mmol/L (22.0-26.0); ABG OXYGEN SATURATION 92.9 % (95-98); ABG PCO2 (T) 37.1 mmHg (32.0-45.0); ABG PH (T) 7.366 (7.350-7.450); ABG PO2 (T) 73.3 mmHg (83-108); FCOHb 0.3 % (0.5-1.5); FMetHb 0.3 % (0.3-1.12); FO2Hb 92.3 % (94-100); MINUTE VOLUME 8 L/min; PATIENT TEMPERATURE 37.5; PEEP 5 cm H2O; RESPIRATORY RATE 10 b/min; RESPIRATORY RATE (OBSERVED) 12 b/min; TIDAL VOLUME 550 mL; TOTAL HEMOGLOBIN 9.6 G/dl (12.0-16.0)
[2017-08-31] MEDS: potassium Cl 20mEq/100mL bag 100 ML IV PRN (03:55)
[2017-08-31] MEDS: mupirocin 2% ointment 22GM NS SCH (07:49)
[2017-08-31] MEDS: docusate sod 100mg capsule PO SCH ×2 (07:49→20:29)
[2017-08-31] MEDS: aspirin 325mg tablet, delayed-release (Ecotrin) PO SCH (07:53)
[2017-08-31] MEDS: atorvastatin 10mg tablet PO SCH (07:53)
[2017-08-31] MEDS: pantoprazole 40mg Tablet.DR PO SCH (07:53)
[2017-08-31] MEDS: metoprolol tartrate 12.5mg (1/2 tablet) PO SCH ×2 (07:54→20:29)
[2017-08-31] MEDS: insulin Lispro (HumaLOG) vial - multi-dose SQ SCH ×3 (09:00→18:00)
[2017-08-31 09:20] LABS: PARTIAL THROMBOPLASTIN TIME 29 SECONDS (22-32); PROTHROMBIN TIME 10.1 SECONDS (9.0-12.0)
[2017-08-31] MEDS: epiNEPHrine inj 5 MG, calcium chloride inj. 1,000 MG in normal saline 250ml IV soln 250 ML IV SCH (11:34)
[2017-08-31] MEDS ORDERED: DOPamine 400mg/D5W 250ml 250 ML IV SCH (13:25)
[2017-08-31] MEDS ORDERED: ketorolac tromethamine 15mg/ml inj. IM PRN (19:00)
[2017-08-31] MEDS: sodium chloride 0.45% 1,000 ML IV SCH (20:29)
[2017-09-01] VITALS (22 sets, daily range): BP systolic 94–149; BP diastolic 58–102
[2017-09-01 04:43] LABS: BASOPHILS % (AUTO) 0 % (0-1); EOSINOPHILS # (AUTO) 0.2 X10'3 (0-0.9); EOSINOPHILS % (AUTO) 1.2 % (0-6); HEMATOCRIT 27.3 % (35.0-45.0); HEMOGLOBIN 9.4 g/dl (12.0-16.0); LYMPHOCYTES % (AUTO) 6.2 % (21-51); MEAN CORPUSCULAR HEMOGLOBIN 31.2 PG (27.0-31.0); MEAN CORPUSCULAR HGB CONC 34.3 % (33.0-36.5); MEAN PLATELET VOLUME 9.9 FL (7.4-10.4); MONOCYTES # (AUTO) 1.3 X10'3 (0-0.9); MONOCYTES % (AUTO) 7.7 % (2-12); NEUTROPHILS # (AUTO) 14.1 X10'3 (1.8-7.7); NEUTROPHILS % (AUTO) 84.9 % (42-75); PLATELET COUNT 131 X10'3 (140-440); RED CELL DISTRIBUTION WIDTH 15.3 % (11.5-14.5); WHITE BLOOD COUNT 16.6 X10'3 (4.5-11.0)
[2017-09-01 04:57] LABS: ALBUMIN 2.7 G/DL (3.4-5.0); ANION GAP 8 (8-16); BLOOD UREA NITROGEN 37 MG/DL (7-18); BUN/CREATININE RATIO 29.1 (6.6-38.0); CHLORIDE 113 MMOL/L (99-107); CREATININE 1.27 MG/DL (0.40-0.90); GLUCOSE 119 MG/DL (70-104); MAGNESIUM 2.8 MG/DL (1.5-2.4); PHOSPHORUS 2.5 MG/DL (2.3-4.5); POTASSIUM 4.4 MMOL/L (3.5-5.1); SODIUM 146 MMOL/L (135-145); eGFR 41 ML/MIN
[2017-09-01] MEDS: metoprolol tartrate 12.5mg (1/2 tablet) PO SCH ×2 (08:00→20:17)
[2017-09-01] MEDS: aspirin 325mg tablet, delayed-release (Ecotrin) PO SCH (08:26)
[2017-09-01] MEDS: pantoprazole 40mg Tablet.DR PO SCH (08:26)
[2017-09-01] MEDS: atorvastatin 20mg tablet PO SCH (08:26)
[2017-09-01] MEDS: docusate sod 100mg capsule PO SCH ×2 (08:26→20:17)
[2017-09-01] MEDS: insulin Lispro (HumaLOG) vial - multi-dose SQ SCH ×3 (08:40→20:19)
[2017-09-01] MEDS: acetaminophen 325mg tablet PO PRN (14:57)
[2017-09-01] MEDS ORDERED: estradiol 1mg tablet PO ONE (18:00)
[2017-09-01] MEDS ORDERED: amiodarone 150mg/dext, iso-os 100 ML IV ONE (20:20)
[2017-09-01] MEDS ORDERED: furosemide 40mg/4ml inj IV ONE (22:25)
[2017-09-02] VITALS (24 sets, daily range): BP systolic 96–154; BP diastolic 52–91
[2017-09-02 03:33] LABS: BASOPHILS % (AUTO) 0.2 % (0-1); EOSINOPHILS # (AUTO) 0.3 X10'3 (0-0.9); EOSINOPHILS % (AUTO) 2.4 % (0-6); HEMATOCRIT 26.8 % (35.0-45.0); HEMOGLOBIN 9.2 g/dl (12.0-16.0); LYMPHOCYTES # (AUTO) 1.3 X10'3 (1.1-4.8); LYMPHOCYTES % (AUTO) 9.1 % (21-51); MEAN CORPUSCULAR HGB CONC 34.4 % (33.0-36.5); MEAN CORPUSCULAR VOLUME 90.1 FL (78-98); MEAN PLATELET VOLUME 9.6 FL (7.4-10.4); MONOCYTES # (AUTO) 1.2 X10'3 (0-0.9); MONOCYTES % (AUTO) 8.1 % (2-12); NEUTROPHILS # (AUTO) 11.5 X10'3 (1.8-7.7); NEUTROPHILS % (AUTO) 80.2 % (42-75); PLATELET COUNT 146 X10'3 (140-440); RED BLOOD COUNT 2.97 X10'6 (4.20-5.60); WHITE BLOOD COUNT 14.4 X10'3 (4.5-11.0)
[2017-09-02 03:56] LABS: ALBUMIN 2.5 G/DL (3.4-5.0); ANION GAP 8 (8-16); BLOOD UREA NITROGEN 39 MG/DL (7-18); BUN/CREATININE RATIO 31.2 (6.6-38.0); CALCIUM 7.9 MG/DL (8.5-10.1); CHLORIDE 109 MMOL/L (99-107); CREATININE 1.25 MG/DL (0.40-0.90); GLUCOSE 106 MG/DL (70-104); MAGNESIUM 2.4 MG/DL (1.5-2.4); PHOSPHORUS 3.5 MG/DL (2.3-4.5); POTASSIUM 4.5 MMOL/L (3.5-5.1); SODIUM 144 MMOL/L (135-145); TOTAL CARBON DIOXIDE 26.9 MMOL/L (24-32); eGFR 42 ML/MIN
[2017-09-02] MEDS: pantoprazole 40mg Tablet.DR PO SCH (07:53)
[2017-09-02] MEDS: atorvastatin 20mg tablet PO SCH (07:53)
[2017-09-02] MEDS: metoprolol tartrate 12.5mg (1/2 tablet) PO SCH ×2 (07:54→20:46)
[2017-09-02] MEDS: aspirin 325mg tablet, delayed-release (Ecotrin) PO SCH (07:54)
[2017-09-02] MEDS: docusate sod 100mg capsule PO SCH ×2 (07:54→20:46)
[2017-09-02] MEDS: estradiol 1mg tablet PO SCH (07:54)
[2017-09-02] MEDS: insulin Lispro (HumaLOG) vial - multi-dose SQ SCH ×3 (09:00→15:53)
[2017-09-02] MEDS ORDERED: amiodarone 150mg/dext, iso-os 100 ML IV ONE (09:45)
[2017-09-02] MEDS: amiodarone/D5 360MG/200ML BAG 200 ML IV SCH ×2 (09:57→15:56)
[2017-09-02] MEDS: epiNEPHrine inj 5 MG, calcium chloride inj. 1,000 MG in normal saline 250ml IV soln 250 ML IV SCH (11:45)
[2017-09-02] MEDS: clopidogrel 75mg tablet PO SCH (16:58)
[2017-09-02] MEDS: sodium chloride 0.45% 1,000 ML IV SCH (20:52)
[2017-09-03] VITALS (24 sets, daily range): BP systolic 116–164; BP diastolic 59–85
[2017-09-03 02:25] LABS: ALBUMIN 2.5 G/DL (3.4-5.0); ANION GAP 7 (8-16); BLOOD UREA NITROGEN 38 MG/DL (7-18); BUN/CREATININE RATIO 36.2 (6.6-38.0); CALCIUM 8.2 MG/DL (8.5-10.1); CHLORIDE 106 MMOL/L (99-107); CREATININE 1.05 MG/DL (0.40-0.90); GLUCOSE 116 MG/DL (70-104); MAGNESIUM 2.3 MG/DL (1.5-2.4); PHOSPHORUS 3.1 MG/DL (2.3-4.5); POTASSIUM 4.3 MMOL/L (3.5-5.1); SODIUM 142 MMOL/L (135-145); TOTAL CARBON DIOXIDE 28.7 MMOL/L (24-32); eGFR 51 ML/MIN
[2017-09-03 02:28] LABS: BASOPHILS % (AUTO) 0.1 % (0-1); EOSINOPHILS # (AUTO) 0.3 X10'3 (0-0.9); EOSINOPHILS % (AUTO) 2.1 % (0-6); HEMATOCRIT 27.1 % (35.0-45.0); HEMOGLOBIN 9.3 g/dl (12.0-16.0); LYMPHOCYTES # (AUTO) 1.3 X10'3 (1.1-4.8); LYMPHOCYTES % (AUTO) 8.8 % (21-51); MEAN CORPUSCULAR HEMOGLOBIN 31.1 PG (27.0-31.0); MEAN CORPUSCULAR HGB CONC 34.3 % (33.0-36.5); MEAN CORPUSCULAR VOLUME 90.7 FL (78-98); MEAN PLATELET VOLUME 9.3 FL (7.4-10.4); MONOCYTES # (AUTO) 1.4 X10'3 (0-0.9); MONOCYTES % (AUTO) 9.2 % (2-12); NEUTROPHILS # (AUTO) 12.1 X10'3 (1.8-7.7); NEUTROPHILS % (AUTO) 79.8 % (42-75); PLATELET COUNT 192 X10'3 (140-440); RED BLOOD COUNT 2.99 X10'6 (4.20-5.60); RED CELL DISTRIBUTION WIDTH 14.2 % (11.5-14.5); WHITE BLOOD COUNT 15.2 X10'3 (4.5-11.0)
[2017-09-03] MEDS: amiodarone/D5 360MG/200ML BAG 200 ML IV SCH (02:47)
[2017-09-03] MEDS: aspirin 325mg tablet, delayed-release (Ecotrin) PO SCH (07:39)
[2017-09-03] MEDS: clopidogrel 75mg tablet PO SCH (07:39)
[2017-09-03] MEDS: atorvastatin 20mg tablet PO SCH (07:39)
[2017-09-03] MEDS: estradiol 1mg tablet PO SCH (07:40)
[2017-09-03] MEDS: pantoprazole 40mg Tablet.DR PO SCH (07:40)
[2017-09-03] MEDS: docusate sod 100mg capsule PO SCH ×2 (07:40→20:00)
[2017-09-03] MEDS: metoprolol tartrate 12.5mg (1/2 tablet) PO SCH ×2 (07:40→20:08)
[2017-09-03] MEDS: insulin Lispro (HumaLOG) vial - multi-dose SQ SCH ×3 (09:00→17:46)
[2017-09-03] MEDS: amiodarone 200mg tablet PO SCH ×3 (11:30→20:09)
[2017-09-03] MEDS: acetaminophen 325mg tablet PO PRN (15:37)
[2017-09-03] MEDS ORDERED: amiodarone/D5 360MG/200ML BAG 200 ML IV SCH (17:22)
[2017-09-03] MEDS ORDERED: amiodarone 150mg/dext, iso-os 100 ML IV ONE (17:25)
[2017-09-03] MEDS ORDERED: furosemide 40mg/4ml inj IV ONE (17:45)
[2017-09-04] VITALS (26 sets, daily range): BP systolic 83–167; BP diastolic 49–98
[2017-09-04 02:53] LABS: BASOPHILS % (AUTO) 0 % (0-1); EOSINOPHILS # (AUTO) 0.4 X10'3 (0-0.9); EOSINOPHILS % (AUTO) 2.6 % (0-6); HEMATOCRIT 27.2 % (35.0-45.0); HEMOGLOBIN 9.3 g/dl (12.0-16.0); LYMPHOCYTES # (AUTO) 1.1 X10'3 (1.1-4.8); LYMPHOCYTES % (AUTO) 8.2 % (21-51); MEAN CORPUSCULAR HEMOGLOBIN 31.1 PG (27.0-31.0); MEAN CORPUSCULAR HGB CONC 34.2 % (33.0-36.5); MEAN CORPUSCULAR VOLUME 90.9 FL (78-98); MONOCYTES # (AUTO) 1.2 X10'3 (0-0.9); MONOCYTES % (AUTO) 8.9 % (2-12); NEUTROPHILS # (AUTO) 11.2 X10'3 (1.8-7.7); NEUTROPHILS % (AUTO) 80.3 % (42-75); PLATELET COUNT 216 X10'3 (140-440); RED BLOOD COUNT 2.99 X10'6 (4.20-5.60); RED CELL DISTRIBUTION WIDTH 14.7 % (11.5-14.5)
[2017-09-04 03:20] LABS: ALBUMIN 2.4 G/DL (3.4-5.0); ANION GAP 11 (8-16); BLOOD UREA NITROGEN 29 MG/DL (7-18); BUN/CREATININE RATIO 30.9 (6.6-38.0); CALCIUM 8.3 MG/DL (8.5-10.1); CHLORIDE 105 MMOL/L (99-107); CREATININE 0.94 MG/DL (0.40-0.90); GLUCOSE 101 MG/DL (70-104); MAGNESIUM 2.1 MG/DL (1.5-2.4); PHOSPHORUS 3.5 MG/DL (2.3-4.5); SODIUM 141 MMOL/L (135-145); TOTAL CARBON DIOXIDE 24.6 MMOL/L (24-32); eGFR 58 ML/MIN
[2017-09-04] MEDS: magnesium 2GM in 50ml NS 50 ML IV PRN (05:07)
[2017-09-04] MEDS: potassium Cl 20mEq/100mL bag 100 ML IV PRN (05:12)
[2017-09-04] MEDS: pantoprazole 40mg Tablet.DR PO SCH (07:01)
[2017-09-04] MEDS: metoprolol tartrate 12.5mg (1/2 tablet) PO SCH ×2 (07:01→21:14)
[2017-09-04] MEDS: estradiol 1mg tablet PO SCH (07:01)
[2017-09-04] MEDS: clopidogrel 75mg tablet PO SCH (07:01)
[2017-09-04] MEDS: amiodarone 200mg tablet PO SCH ×3 (07:01→21:14)
[2017-09-04] MEDS: atorvastatin 20mg tablet PO SCH (07:01)
[2017-09-04] MEDS: aspirin 325mg tablet, delayed-release (Ecotrin) PO SCH (07:01)
[2017-09-04] MEDS: docusate sod 100mg capsule PO SCH ×2 (08:00→21:15)
[2017-09-04] MEDS: insulin Lispro (HumaLOG) vial - multi-dose SQ SCH ×3 (09:00→17:25)
[2017-09-04] MEDS: acetaminophen 325mg tablet PO PRN ×4 (10:54→23:27)
[2017-09-04] MEDS ORDERED: LIDOcaine 1% (10mg/ml) 2ml vial ONE (11:38)
[2017-09-04] MEDS ORDERED: LIDOcaine 1%/PF (10mg/ml) 5ml vial ONE (12:18)
[2017-09-04] MEDS: Protein Smoothie (high protein) 240ml (8oz) cup PO SCH ×2 (13:00→18:00)
[2017-09-04] MEDS: sodium chloride 0.45% 1,000 ML IV SCH (19:25)
[2017-09-05] VITALS (23 sets, daily range): BP systolic 92–153; BP diastolic 50–82
[2017-09-05 02:44] LABS: BASOPHILS % (AUTO) 0.3 % (0-1); EOSINOPHILS # (AUTO) 0.5 X10'3 (0-0.9); EOSINOPHILS % (AUTO) 3.7 % (0-6); HEMOGLOBIN 8.9 g/dl (12.0-16.0); LYMPHOCYTES # (AUTO) 1.2 X10'3 (1.1-4.8); MEAN CORPUSCULAR HEMOGLOBIN 31.4 PG (27.0-31.0); MEAN CORPUSCULAR HGB CONC 34.3 % (33.0-36.5); MEAN CORPUSCULAR VOLUME 91.4 FL (78-98); MEAN PLATELET VOLUME 8.4 FL (7.4-10.4); MONOCYTES # (AUTO) 1.3 X10'3 (0-0.9); MONOCYTES % (AUTO) 9.2 % (2-12); NEUTROPHILS # (AUTO) 11.4 X10'3 (1.8-7.7); NEUTROPHILS % (AUTO) 78.8 % (42-75); PLATELET COUNT 234 X10'3 (140-440); RED BLOOD COUNT 2.85 X10'6 (4.20-5.60); RED CELL DISTRIBUTION WIDTH 14.3 % (11.5-14.5); WHITE BLOOD COUNT 14.5 X10'3 (4.5-11.0)
[2017-09-05 03:00] LABS: MAGNESIUM 2.2 MG/DL (1.5-2.4); PHOSPHORUS 3.3 MG/DL (2.3-4.5); POTASSIUM 4.1 MMOL/L (3.5-5.1)
[2017-09-05] MEDS: acetaminophen 325mg tablet PO PRN ×3 (03:21→20:41)
[2017-09-05] MEDS: potassium Cl 20mEq/100mL bag 100 ML IV PRN (03:21)
[2017-09-05] MEDS: magnesium 2GM in 50ml NS 50 ML IV PRN (03:34)
[2017-09-05 03:54] LABS: ALBUMIN 2.2 G/DL (3.4-5.0); ANION GAP 10 (8-16); BLOOD UREA NITROGEN 29 MG/DL (7-18); BUN/CREATININE RATIO 28.4 (6.6-38.0); CALCIUM 8.2 MG/DL (8.5-10.1); CHLORIDE 106 MMOL/L (99-107); CREATININE 1.02 MG/DL (0.40-0.90); GLUCOSE 104 MG/DL (70-104); SODIUM 140 MMOL/L (135-145); TOTAL CARBON DIOXIDE 24.4 MMOL/L (24-32); eGFR 53 ML/MIN
[2017-09-05] MEDS: pantoprazole 40mg Tablet.DR PO SCH ×2 (07:22→20:42)
[2017-09-05] MEDS: clopidogrel 75mg tablet PO SCH (07:22)
[2017-09-05] MEDS: metoprolol tartrate 12.5mg (1/2 tablet) PO SCH ×2 (07:22→20:42)
[2017-09-05] MEDS: amiodarone 200mg tablet PO SCH ×3 (07:22→20:42)
[2017-09-05] MEDS: aspirin 325mg tablet, delayed-release (Ecotrin) PO SCH (07:23)
[2017-09-05] MEDS: atorvastatin 20mg tablet PO SCH (07:23)
[2017-09-05] MEDS: docusate sod 100mg capsule PO SCH ×2 (07:23→20:00)
[2017-09-05] MEDS: estradiol 1mg tablet PO SCH (07:25)
[2017-09-05] MEDS: Protein Smoothie (high protein) 240ml (8oz) cup PO SCH ×3 (08:00→18:13)
[2017-09-05] MEDS: insulin Lispro (HumaLOG) vial - multi-dose SQ SCH ×3 (09:00→18:00)
[2017-09-06] VITALS (24 sets, daily range): BP systolic 105–160; BP diastolic 49–91
[2017-09-06 02:57] LABS: BASOPHILS % (AUTO) 0.2 % (0-1); EOSINOPHILS # (AUTO) 0.6 X10'3 (0-0.9); EOSINOPHILS % (AUTO) 3.7 % (0-6); HEMATOCRIT 26.7 % (35.0-45.0); HEMOGLOBIN 9.2 g/dl (12.0-16.0); LYMPHOCYTES # (AUTO) 1.2 X10'3 (1.1-4.8); LYMPHOCYTES % (AUTO) 7.7 % (21-51); MEAN CORPUSCULAR HEMOGLOBIN 31.4 PG (27.0-31.0); MEAN CORPUSCULAR HGB CONC 34.5 % (33.0-36.5); MEAN CORPUSCULAR VOLUME 90.9 FL (78-98); MEAN PLATELET VOLUME 8.4 FL (7.4-10.4); MONOCYTES # (AUTO) 1.3 X10'3 (0-0.9); MONOCYTES % (AUTO) 7.9 % (2-12); NEUTROPHILS # (AUTO) 12.9 X10'3 (1.8-7.7); NEUTROPHILS % (AUTO) 80.5 % (42-75); PLATELET COUNT 278 X10'3 (140-440); RED BLOOD COUNT 2.94 X10'6 (4.20-5.60); RED CELL DISTRIBUTION WIDTH 14.8 % (11.5-14.5)
[2017-09-06 03:18] LABS: ALANINE AMINOTRANSFERASE 63 U/L (12-78); ALBUMIN 2.3 G/DL (3.4-5.0); ALBUMIN/GLOBULIN RATIO 0.8 (1.1-1.5); ALKALINE PHOSPHATASE 128 IU/L (46-116); ANION GAP 7 (8-16); ASPARTATE AMINO TRANSFERASE 41 U/L (10-37); BILIRUBIN,TOTAL 0.4 MG/DL (0.1-1.0); BLOOD UREA NITROGEN 26 MG/DL (7-18); CHLORIDE 108 MMOL/L (99-107); CREATININE 1.13 MG/DL (0.40-0.90); GLUCOSE 120 MG/DL (70-104); MAGNESIUM 2.1 MG/DL (1.5-2.4); POTASSIUM 3.9 MMOL/L (3.5-5.1); SODIUM 142 MMOL/L (135-145); TOTAL CARBON DIOXIDE 27.5 MMOL/L (24-32); TOTAL PROTEIN 5.3 G/DL (6.4-8.2); eGFR 47 ML/MIN
[2017-09-06] MEDS: estradiol 1mg tablet PO SCH (08:00)
[2017-09-06] MEDS: docusate sod 100mg capsule PO SCH ×2 (08:00→19:31)
[2017-09-06] MEDS: atorvastatin 20mg tablet PO SCH (08:21)
[2017-09-06] MEDS: amiodarone 200mg tablet PO SCH ×3 (08:22→21:02)
[2017-09-06] MEDS: metoprolol tartrate 12.5mg (1/2 tablet) PO SCH ×2 (08:22→19:30)
[2017-09-06] MEDS: aspirin 325mg tablet, delayed-release (Ecotrin) PO SCH (08:23)
[2017-09-06] MEDS: clopidogrel 75mg tablet PO SCH (08:23)
[2017-09-06] MEDS: Protein Smoothie (high protein) 240ml (8oz) cup PO SCH ×3 (08:30→18:00)
[2017-09-06] MEDS: insulin Lispro (HumaLOG) vial - multi-dose SQ SCH ×3 (09:00→18:00)
[2017-09-06] MEDS: acetaminophen 325mg tablet PO PRN ×2 (10:56→19:29)
[2017-09-06] MEDS: sodium chloride 0.45% 1,000 ML IV SCH (19:25)
[2017-09-07] VITALS (10 sets, daily range): BP systolic 107–158; BP diastolic 59–89
[2017-09-07] MEDS: acetaminophen 325mg tablet PO PRN (04:49)
[2017-09-07] MEDS ORDERED: AMIO200T57 PO (06:53)
[2017-09-07] MEDS ORDERED: ASPI-41 PO (06:53)
[2017-09-07] MEDS ORDERED: CLOP75TA35 PO (06:53)
[2017-09-07] MEDS ORDERED: ATOR20TA66 PO (06:53)
[2017-09-07] MEDS ORDERED: METO25TA6 PO (06:53)
[2017-09-07] MEDS ORDERED: COL100C PO (06:53)
[2017-09-07] MEDS: pantoprazole 40mg Tablet.DR PO SCH (07:05)
[2017-09-07] MEDS: atorvastatin 20mg tablet PO SCH (07:05)
[2017-09-07] MEDS: estradiol 1mg tablet PO SCH (07:05)
[2017-09-07] MEDS: amiodarone 200mg tablet PO SCH (07:05)
[2017-09-07] MEDS: docusate sod 100mg capsule PO SCH (07:05)
[2017-09-07] MEDS: clopidogrel 75mg tablet PO SCH (07:05)
[2017-09-07] MEDS: metoprolol tartrate 12.5mg (1/2 tablet) PO SCH (07:06)
[2017-09-07] MEDS: Protein Smoothie (high protein) 240ml (8oz) cup PO SCH (07:57)
[2017-09-07] MEDS ORDERED: aspirin 81mg tablet.DR PO SCH (08:00)
[2017-09-07] MEDS: insulin Lispro (HumaLOG) vial - multi-dose SQ SCH (08:45)
== END 2017-09-07 10:30 | disposition home health service (06) | DRG 216 ==
LOC: ER 12:21 → ED HOLD 13:53 → PCU 3S 17:00 → PACU 08-29 13:50 → ICU 2S 08-29 15:14
PROVIDERS: ADMIT Internal Medicine; ATTEND Thoracic Surgery (Cardiothoracic Vascular Surgery)
PROC: 4A023N7 Measurement of Cardiac Sampling and Pressure, Left Heart, Percutaneous Approach (ICD-10-PCS; principal; 2017-08-28)
PROC: 02703ZZ Dilation of Coronary Artery, One Artery, Percutaneous Approach (ICD-10-PCS; 2017-08-28)
PROC: B2111ZZ Fluoroscopy of Multiple Coronary Arteries using Low Osmolar Contrast (ICD-10-PCS; 2017-08-28)
PROC: B2151ZZ Fluoroscopy of Left Heart using Low Osmolar Contrast (ICD-10-PCS; 2017-08-28)
PROC: B3121ZZ Fluoroscopy of Left Subclavian Artery using Low Osmolar Contrast (ICD-10-PCS; 2017-08-28)
PROC: B41F1ZZ Fluoroscopy of Right Lower Extremity Arteries using Low Osmolar Contrast (ICD-10-PCS; 2017-08-28)
PROC: 02UG0JZ Supplement Mitral Valve with Synthetic Substitute, Open Approach (ICD-10-PCS; 2017-08-29)
PROC: 5A02110 Assistance with Cardiac Output using Balloon Pump, Intermittent (ICD-10-PCS; 2017-08-29)
PROC: 5A1945Z Respiratory Ventilation, 24-96 Consecutive Hours (ICD-10-PCS; 2017-08-29)
PROC: 02100Z9 Bypass Coronary Artery, One Artery from Left Internal Mammary, Open Approach (ICD-10-PCS; 2017-08-29)
PROC: 021209W Bypass Coronary Artery, Three Arteries from Aorta with Autologous Venous Tissue, Open Approach (ICD-10-PCS; 2017-08-29)
PROC: 06BP4ZZ Excision of Right Saphenous Vein, Percutaneous Endoscopic Approach (ICD-10-PCS; 2017-08-29)
PROC: 02HV33Z Insertion of Infusion Device into Superior Vena Cava, Percutaneous Approach (ICD-10-PCS; 2017-08-29)
PROC: 02HP32Z Insertion of Monitoring Device into Pulmonary Trunk, Percutaneous Approach (ICD-10-PCS; 2017-08-29)
PROC: 30233R1 Transfusion of Nonautologous Platelets into Peripheral Vein, Percutaneous Approach (ICD-10-PCS; 2017-08-29)
PROC: 30233N1 Transfusion of Nonautologous Red Blood Cells into Peripheral Vein, Percutaneous Approach (ICD-10-PCS; 2017-08-29)
PROC: 5A1221Z Performance of Cardiac Output, Continuous (ICD-10-PCS; 2017-08-29)
PROC: B24BZZ4 Ultrasonography of Heart with Aorta, Transesophageal (ICD-10-PCS; 2017-08-29)
PROC: 4A133B3 Monitoring of Arterial Pressure, Pulmonary, Percutaneous Approach (ICD-10-PCS; 2017-08-29)
PROC: 4A1239Z Monitoring of Cardiac Output, Percutaneous Approach (ICD-10-PCS; 2017-08-29)
PROC: 0W9B3ZZ Drainage of Left Pleural Cavity, Percutaneous Approach (ICD-10-PCS; 2017-09-04)
PROC: 0W993ZZ Drainage of Right Pleural Cavity, Percutaneous Approach (ICD-10-PCS; 2017-09-04)
DX: I21.4 Non-ST elevation (NSTEMI) myocardial infarction (principal); I50.31 Acute diastolic (congestive) heart failure; I63.9 Cerebral infarction, unspecified; J90 Pleural effusion, not elsewhere classified; I95.9 Hypotension, unspecified; G83.9 Paralytic syndrome, unspecified; I34.0 Nonrheumatic mitral (valve) insufficiency; I48.91 Unspecified atrial fibrillation; G83.21 Monoplegia of upper limb affecting right dominant side; R47.01 Aphasia; E78.5 Hyperlipidemia, unspecified; K80.20 Calculus of gallbladder without cholecystitis without obstruction; R92.8 Other abnormal and inconclusive findings on diagnostic imaging of breast; I16.0 Hypertensive urgency; I25.110 Atherosclerotic heart disease of native coronary artery with unstable angina pectoris; I49.3 Ventricular premature depolarization; K21.9 Gastro-esophageal reflux disease without esophagitis; Z90.710 Acquired absence of both cervix and uterus; Z79.82 Long term (current) use of aspirin; Z79.899 Other long term (current) drug therapy; Z88.0 Allergy status to penicillin; Z87.891 Personal history of nicotine dependence
CPT/HCPCS: 0232T; 32555; 92920; 93306; 93312; 93325; 93458; 96361; 96365; 99285; 36415; 36600; 70450; 70544; 70551; 71045; 71046; 80048; 80053; 80061; 82330; 82435; 82607; 82746; 82803; 82947; 82948; 83036; 83735; 83880; 84100; 84132; 84295; 84443; 84484; 85018; 85025; 85027; 85347; 85384; 85610; 85730; 86885; 86900; 86901; 86920; 87070; 92507; 92616; 93005; 93880; 93971; 94002; 94003; 94010; 94760; 97110; 97116; 97162; 97164; 97530; 99152; 99153; A4333; A4620; A6213; A6222; A6255; A6257; A6258; A6402; A6449; A7000; A7048; C1725; C1751; C1760; C1769; C9113; J0171; J0282; J1200; J1250; J1265; J1644; J1650; J1815; J1940; J2001; J2060; J2150; J2250; J2274; J2370; J2405; J2440; J2720; J3370; J3475; J3480; J3490; J7030; J7120; P9016; P9035; P9045; P9047; Q9967

== ENCOUNTER 2017-09-07 17:44 | Inpatient (IN) | payer MEDICARE, OTHER ==
[~2017-09-07] VITALS: Ht 170.2 cm; Wt 74.3 kg
[~2017-09-07 17:44] MED LIST: AMIO200T57 PO; ASPI-41 PO; ATOR20TA66 PO; CLOP75TA35 PO; COL100C PO; ESTR1TAB28; MELO-100; METO25TA6 PO; MULT-955 PO; OMEP-50; OMEP40CA37
[2017-09-07 20:25] LABS: BASOPHILS # (AUTO) 0.1 X10'3 (0-0.2); BASOPHILS % (AUTO) 0.7 % (0-1); EOSINOPHILS # (AUTO) 0.5 X10'3 (0-0.9); HEMATOCRIT 29.5 % (35.0-45.0); HEMOGLOBIN 9.9 g/dl (12.0-16.0); LYMPHOCYTES # (AUTO) 1.2 X10'3 (1.1-4.8); LYMPHOCYTES % (AUTO) 6.7 % (21-51); MEAN CORPUSCULAR HEMOGLOBIN 31.1 PG (27.0-31.0); MEAN CORPUSCULAR HGB CONC 33.7 % (33.0-36.5); MEAN CORPUSCULAR VOLUME 92.3 FL (78-98); MEAN PLATELET VOLUME 7.9 FL (7.4-10.4); MONOCYTES # (AUTO) 1.1 X10'3 (0-0.9); MONOCYTES % (AUTO) 6.1 % (2-12); NEUTROPHILS # (AUTO) 14.9 X10'3 (1.8-7.7); NEUTROPHILS % (AUTO) 83.5 % (42-75); PLATELET COUNT 318 X10'3 (140-440); RED CELL DISTRIBUTION WIDTH 15.3 % (11.5-14.5); WHITE BLOOD COUNT 17.9 X10'3 (4.5-11.0)
[2017-09-07] MEDS ORDERED: furosemide 40mg/4ml inj IV ONE (20:35)
[2017-09-07] MEDS ORDERED: LORazepam 2 mg/ml vial IV ONE (20:35)
[2017-09-07 20:38] LABS: PARTIAL THROMBOPLASTIN TIME 26 SECONDS (22-32); PROTHROMBIN TIME 10.6 SECONDS (9.0-12.0)
[2017-09-07 20:54] LABS: ALANINE AMINOTRANSFERASE 55 U/L (12-78); ALBUMIN 2.6 G/DL (3.4-5.0); ALBUMIN/GLOBULIN RATIO 0.8 (1.1-1.5); ALKALINE PHOSPHATASE 116 IU/L (46-116); ANION GAP 9 (8-16); ASPARTATE AMINO TRANSFERASE 38 U/L (10-37); BILIRUBIN,TOTAL 0.5 MG/DL (0.1-1.0); BLOOD UREA NITROGEN 24 MG/DL (7-18); BUN/CREATININE RATIO 20.2 (6.6-38.0); CHLORIDE 107 MMOL/L (99-107); CREATININE 1.19 MG/DL (0.40-0.90); GLUCOSE 114 MG/DL (70-104); POTASSIUM 4.1 MMOL/L (3.5-5.1); SODIUM 144 MMOL/L (135-145); TOTAL CARBON DIOXIDE 27.7 MMOL/L (24-32); TOTAL PROTEIN 5.8 G/DL (6.4-8.2); eGFR 44 ML/MIN
[2017-09-07] MEDS ORDERED: metoprolol tartrate 1mg/ml inj IV ONE ×2 (23:20→23:50)
[2017-09-07 23:41] LABS: ABG BASE EXCESS -0.3 mmol/L (-2.0-3.0); ABG HCO3 24.9 mmol/L (22.0-26.0); ABG OXYGEN SATURATION 92.8 % (95-98); ABG PH (T) 7.388 (7.350-7.450); ABG PO2 (T) 67.4 mmHg (83-108); FCOHb 1.3 % (0.5-1.5); FLOW 2 L/min; FMetHb 0.3 % (0.3-1.12); FO2Hb 91.3 % (94-100); PATIENT TEMPERATURE 36.5; RESPIRATORY RATE (OBSERVED) 16 b/min; TOTAL HEMOGLOBIN 10.9 G/dl (12.0-16.0)
[2017-09-08] VITALS (7 sets, daily range): BP systolic 106–172; BP diastolic 57–88
[2017-09-08] MEDS ORDERED: magnesium hydroxide 30ml (MOM) UD suspension PO PRN (02:25)
[2017-09-08] MEDS ORDERED: ondansetron/PF 4mg/2ml inj IV PRN (02:25)
[2017-09-08] MEDS ORDERED: mag hydrox/Alum hydrox/simeth 30ml oral suspension PO PRN (02:25)
[2017-09-08] MEDS ORDERED: aspirin 325mg tablet PO ONE (02:25)
[2017-09-08] MEDS ORDERED: docusate sod 100mg capsule PO PRN (02:25)
[2017-09-08] MEDS ORDERED: acetaminophen 325mg tablet PO PRN (02:25)
[2017-09-08] MEDS ORDERED: clopidogrel 75mg tablet PO ONE (02:32)
[2017-09-08] MEDS ORDERED: amiodarone 200mg tablet PO ONE (06:00)
[2017-09-08] MEDS ORDERED: metoprolol tartrate 25mg tablet PO ONE (06:00)
[2017-09-08] MEDS ORDERED: aspirin 325mg tablet, delayed-release (Ecotrin) PO SCH (08:00)
[2017-09-08] MEDS ORDERED: amiodarone 200mg tablet PO SCH (08:00)
[2017-09-08] MEDS ORDERED: furosemide 10 MG/1 ML 10ml inj IV SCH (08:00)
[2017-09-08] MEDS: metoprolol tartrate 25mg tablet PO SCH ×2 (08:00→20:07)
[2017-09-08] MEDS: docusate sod 100mg capsule PO SCH ×2 (08:00→20:07)
[2017-09-08] MEDS: acetaminophen 325mg tablet PO PRN (08:18)
[2017-09-08] MEDS: atorvastatin 20mg tablet PO SCH (08:19)
[2017-09-08] MEDS: potassium Cl 20 mEq SR tablet PO SCH (08:20)
[2017-09-08] MEDS: pantoprazole 40mg Tablet.DR PO SCH (08:24)
[2017-09-08] MEDS ORDERED: amiodarone 50MG/ML inj IV ONE (08:25)
[2017-09-08] MEDS ORDERED: amiodarone 150mg/dext, iso-os 100 ML IV ONE (08:50)
[2017-09-08] MEDS: apixaban 5mg tablet PO SCH ×2 (09:10→20:07)
[2017-09-08] MEDS ORDERED: aspirin 81mg tab.chew PO ONE (09:35)
[2017-09-08] MEDS ORDERED: clopidogrel 75mg tablet PO SCH (20:00)
[2017-09-08] MEDS: amiodarone 200mg tablet PO SCH (20:07)
[2017-09-09] MEDS: acetaminophen 325mg tablet PO PRN ×3 (00:31→18:54)
[2017-09-09 02:00] VITALS: BP 138/64
[2017-09-09 06:00] VITALS: BP 133/61
[2017-09-09 06:16] LABS: BASOPHILS % (AUTO) 0.1 % (0-1); EOSINOPHILS # (AUTO) 0.5 X10'3 (0-0.9); EOSINOPHILS % (AUTO) 3.9 % (0-6); HEMATOCRIT 27.8 % (35.0-45.0); HEMOGLOBIN 9.3 g/dl (12.0-16.0); LYMPHOCYTES # (AUTO) 1.3 X10'3 (1.1-4.8); LYMPHOCYTES % (AUTO) 9.4 % (21-51); MEAN CORPUSCULAR HEMOGLOBIN 30.8 PG (27.0-31.0); MEAN CORPUSCULAR HGB CONC 33.6 % (33.0-36.5); MEAN CORPUSCULAR VOLUME 91.8 FL (78-98); MEAN PLATELET VOLUME 7.9 FL (7.4-10.4); MONOCYTES # (AUTO) 1.1 X10'3 (0-0.9); MONOCYTES % (AUTO) 7.7 % (2-12); NEUTROPHILS # (AUTO) 10.8 X10'3 (1.8-7.7); NEUTROPHILS % (AUTO) 78.9 % (42-75); PLATELET COUNT 265 X10'3 (140-440); RED BLOOD COUNT 3.03 X10'6 (4.20-5.60); RED CELL DISTRIBUTION WIDTH 16.4 % (11.5-14.5); WHITE BLOOD COUNT 13.6 X10'3 (4.5-11.0)
[2017-09-09 06:23] LABS: ALBUMIN 2.4 G/DL (3.4-5.0); ANION GAP 8 (8-16); BLOOD UREA NITROGEN 23 MG/DL (7-18); BUN/CREATININE RATIO 19.5 (6.6-38.0); CALCIUM 8.6 MG/DL (8.5-10.1); CHLORIDE 103 MMOL/L (99-107); CREATININE 1.18 MG/DL (0.40-0.90); GLUCOSE 100 MG/DL (70-104); SODIUM 142 MMOL/L (135-145); TOTAL CARBON DIOXIDE 30.9 MMOL/L (24-32); eGFR 44 ML/MIN
[2017-09-09] MEDS: pantoprazole 40mg Tablet.DR PO SCH (07:58)
[2017-09-09] MEDS: docusate sod 100mg capsule PO SCH ×2 (07:59→19:12)
[2017-09-09] MEDS: apixaban 5mg tablet PO SCH ×2 (08:00→19:12)
[2017-09-09] MEDS: atorvastatin 20mg tablet PO SCH (08:00)
[2017-09-09] MEDS: metoprolol tartrate 25mg tablet PO SCH ×2 (08:01→19:12)
[2017-09-09] MEDS: aspirin 81mg tab.chew PO SCH (08:01)
[2017-09-09] MEDS: multivitamins, therapeutics tablet PO SCH (08:01)
[2017-09-09] MEDS: estradiol 1mg tablet PO SCH (08:02)
[2017-09-09] MEDS: amiodarone 200mg tablet PO SCH ×2 (08:02→19:11)
[2017-09-09] MEDS: potassium Cl 20 mEq SR tablet PO SCH (08:02)
[2017-09-09] MEDS: furosemide 40mg/4ml inj IV SCH ×2 (08:04→19:11)
[2017-09-09 11:00] VITALS: BP 126/61
[2017-09-09] MEDS ORDERED: furosemide 40mg/4ml inj IV ONE (13:00)
[2017-09-09] MEDS: Protein Shake (high protein) 240ml (8oz) cup PO SCH ×2 (13:00→18:01)
[2017-09-09] MEDS ORDERED: LIDOcaine 1%/PF (10mg/ml) 5ml vial ONE (14:01)
[2017-09-09 15:00] VITALS: BP 118/65
[2017-09-09 19:00] VITALS: BP 125/56
[2017-09-09 22:00] VITALS: BP 119/59
[2017-09-10] MEDS: acetaminophen 325mg tablet PO PRN ×4 (00:56→22:17)
[2017-09-10 02:00] VITALS: BP 128/60
[2017-09-10 05:48] LABS: BASOPHILS # (AUTO) 0.1 X10'3 (0-0.2); BASOPHILS % (AUTO) 0.4 % (0-1); EOSINOPHILS # (AUTO) 0.6 X10'3 (0-0.9); EOSINOPHILS % (AUTO) 3.8 % (0-6); HEMATOCRIT 29.2 % (35.0-45.0); HEMOGLOBIN 9.8 g/dl (12.0-16.0); LYMPHOCYTES # (AUTO) 1.6 X10'3 (1.1-4.8); LYMPHOCYTES % (AUTO) 11.1 % (21-51); MEAN CORPUSCULAR HEMOGLOBIN 30.7 PG (27.0-31.0); MEAN CORPUSCULAR HGB CONC 33.5 % (33.0-36.5); MEAN CORPUSCULAR VOLUME 91.6 FL (78-98); MEAN PLATELET VOLUME 7.9 FL (7.4-10.4); MONOCYTES # (AUTO) 0.8 X10'3 (0-0.9); MONOCYTES % (AUTO) 5.8 % (2-12); NEUTROPHILS # (AUTO) 11.5 X10'3 (1.8-7.7); NEUTROPHILS % (AUTO) 78.9 % (42-75); PLATELET COUNT 311 X10'3 (140-440); RED BLOOD COUNT 3.18 X10'6 (4.20-5.60); RED CELL DISTRIBUTION WIDTH 16.2 % (11.5-14.5); WHITE BLOOD COUNT 14.6 X10'3 (4.5-11.0)
[2017-09-10 06:00] VITALS: BP 143/61
[2017-09-10 06:32] LABS: ALANINE AMINOTRANSFERASE 39 U/L (12-78); ALBUMIN 2.5 G/DL (3.4-5.0); ALBUMIN/GLOBULIN RATIO 0.8 (1.1-1.5); ALKALINE PHOSPHATASE 89 IU/L (46-116); ANION GAP 7 (8-16); ASPARTATE AMINO TRANSFERASE 25 U/L (10-37); BILIRUBIN,TOTAL 0.5 MG/DL (0.1-1.0); BLOOD UREA NITROGEN 29 MG/DL (7-18); CALCIUM 8.8 MG/DL (8.5-10.1); CHLORIDE 103 MMOL/L (99-107); CREATININE 1.45 MG/DL (0.40-0.90); GLUCOSE 100 MG/DL (70-104); MAGNESIUM 1.2 MG/DL (1.5-2.4); POTASSIUM 3.4 MMOL/L (3.5-5.1); SODIUM 144 MMOL/L (135-145); TOTAL CARBON DIOXIDE 34.3 MMOL/L (24-32); TOTAL PROTEIN 5.8 G/DL (6.4-8.2); eGFR 35 ML/MIN
[2017-09-10] MEDS: estradiol 1mg tablet PO SCH (07:48)
[2017-09-10] MEDS: pantoprazole 40mg Tablet.DR PO SCH (07:48)
[2017-09-10] MEDS: docusate sod 100mg capsule PO SCH ×2 (07:48→19:52)
[2017-09-10] MEDS: metoprolol tartrate 25mg tablet PO SCH ×2 (07:49→20:04)
[2017-09-10] MEDS: atorvastatin 20mg tablet PO SCH (07:49)
[2017-09-10] MEDS: amiodarone 200mg tablet PO SCH ×2 (07:49→19:52)
[2017-09-10] MEDS: aspirin 81mg tab.chew PO SCH (07:49)
[2017-09-10] MEDS: potassium Cl 20 mEq SR tablet PO SCH ×2 (07:50→19:52)
[2017-09-10] MEDS: apixaban 5mg tablet PO SCH ×2 (07:50→19:52)
[2017-09-10] MEDS: multivitamins, therapeutics tablet PO SCH (07:50)
[2017-09-10] MEDS: furosemide 40mg/4ml inj IV SCH ×3 (07:51→19:51)
[2017-09-10] MEDS: Protein Shake (high protein) 240ml (8oz) cup PO SCH ×3 (07:51→18:00)
[2017-09-10] MEDS ORDERED: potassium Cl 20 mEq SR tablet PO STA (08:57)
[2017-09-10] MEDS ORDERED: magnesium 4gm in 100ml NS 100 ML IV ONE (09:00)
[2017-09-10 11:00] VITALS: BP 127/58
[2017-09-10 15:00] VITALS: BP 133/56
[2017-09-10 18:00] VITALS: BP 136/83
[2017-09-10] MEDS ORDERED: potassium Cl 20 mEq SR tablet PO ONE (21:55)
[2017-09-10 22:00] VITALS: BP 130/57
[2017-09-11 03:33] VITALS: BP 164/61
[2017-09-11] MEDS: acetaminophen 325mg tablet PO PRN ×3 (05:05→17:16)
[2017-09-11 06:30] VITALS: BP 141/61
[2017-09-11] MEDS: furosemide 40mg/4ml inj IV SCH ×3 (06:58→20:11)
[2017-09-11 07:14] LABS: BASOPHILS % (AUTO) 0.1 % (0-1); EOSINOPHILS # (AUTO) 0.5 X10'3 (0-0.9); EOSINOPHILS % (AUTO) 3.5 % (0-6); HEMATOCRIT 30.9 % (35.0-45.0); HEMOGLOBIN 10.2 g/dl (12.0-16.0); LYMPHOCYTES # (AUTO) 1.4 X10'3 (1.1-4.8); LYMPHOCYTES % (AUTO) 9.4 % (21-51); MEAN CORPUSCULAR HEMOGLOBIN 30.9 PG (27.0-31.0); MEAN CORPUSCULAR VOLUME 93.4 FL (78-98); MONOCYTES # (AUTO) 0.9 X10'3 (0-0.9); MONOCYTES % (AUTO) 5.9 % (2-12); NEUTROPHILS # (AUTO) 11.9 X10'3 (1.8-7.7); NEUTROPHILS % (AUTO) 81.1 % (42-75); PLATELET COUNT 327 X10'3 (140-440); RED BLOOD COUNT 3.31 X10'6 (4.20-5.60); RED CELL DISTRIBUTION WIDTH 16.3 % (11.5-14.5); WHITE BLOOD COUNT 14.7 X10'3 (4.5-11.0)
[2017-09-11 07:41] LABS: ALANINE AMINOTRANSFERASE 37 U/L (12-78); ALBUMIN 2.8 G/DL (3.4-5.0); ALBUMIN/GLOBULIN RATIO 0.8 (1.1-1.5); ALKALINE PHOSPHATASE 92 IU/L (46-116); ANION GAP 6 (8-16); ASPARTATE AMINO TRANSFERASE 25 U/L (10-37); BILIRUBIN,TOTAL 0.4 MG/DL (0.1-1.0); BLOOD UREA NITROGEN 30 MG/DL (7-18); BUN/CREATININE RATIO 22.1 (6.6-38.0); CALCIUM 9.2 MG/DL (8.5-10.1); CHLORIDE 104 MMOL/L (99-107); CREATININE 1.36 MG/DL (0.40-0.90); GLUCOSE 98 MG/DL (70-104); PHOSPHORUS 3.6 MG/DL (2.3-4.5); POTASSIUM 4.6 MMOL/L (3.5-5.1); SODIUM 143 MMOL/L (135-145); TOTAL PROTEIN 6.4 G/DL (6.4-8.2); eGFR 38 ML/MIN
[2017-09-11] MEDS: potassium Cl 20 mEq SR tablet PO SCH ×2 (08:00→20:09)
[2017-09-11] MEDS: aspirin 81mg tab.chew PO SCH (08:12)
[2017-09-11] MEDS: multivitamins, therapeutics tablet PO SCH (08:12)
[2017-09-11] MEDS: amiodarone 200mg tablet PO SCH ×2 (08:12→20:12)
[2017-09-11] MEDS: apixaban 5mg tablet PO SCH ×2 (08:13→20:12)
[2017-09-11] MEDS: docusate sod 100mg capsule PO SCH ×2 (08:13→20:12)
[2017-09-11] MEDS: metoprolol tartrate 25mg tablet PO SCH ×2 (08:13→20:12)
[2017-09-11] MEDS: estradiol 1mg tablet PO SCH (08:13)
[2017-09-11] MEDS: pantoprazole 40mg Tablet.DR PO SCH (08:13)
[2017-09-11] MEDS: atorvastatin 20mg tablet PO SCH (08:13)
[2017-09-11] MEDS: Protein Shake (high protein) 240ml (8oz) cup PO SCH ×3 (08:18→18:02)
[2017-09-11 11:00] VITALS: BP 143/64
[2017-09-11 15:00] VITALS: BP 131/55
[2017-09-11 19:00] VITALS: BP 133/53
[2017-09-11 22:00] VITALS: BP 133/64
[2017-09-12 02:00] VITALS: BP 126/66
[2017-09-12] MEDS: acetaminophen 325mg tablet PO PRN ×3 (04:59→18:22)
[2017-09-12 05:31] LABS: BASOPHILS % (AUTO) 0.1 % (0-1); EOSINOPHILS # (AUTO) 0.7 X10'3 (0-0.9); EOSINOPHILS % (AUTO) 4.6 % (0-6); HEMATOCRIT 30.6 % (35.0-45.0); HEMOGLOBIN 10.2 g/dl (12.0-16.0); LYMPHOCYTES # (AUTO) 1.7 X10'3 (1.1-4.8); LYMPHOCYTES % (AUTO) 11.7 % (21-51); MEAN CORPUSCULAR HEMOGLOBIN 30.8 PG (27.0-31.0); MEAN CORPUSCULAR HGB CONC 33.3 % (33.0-36.5); MEAN CORPUSCULAR VOLUME 92.7 FL (78-98); MEAN PLATELET VOLUME 8.1 FL (7.4-10.4); MONOCYTES # (AUTO) 0.8 X10'3 (0-0.9); MONOCYTES % (AUTO) 5.6 % (2-12); NEUTROPHILS # (AUTO) 11.7 X10'3 (1.8-7.7); PLATELET COUNT 334 X10'3 (140-440)
[2017-09-12 06:06] LABS: ALBUMIN 2.7 G/DL (3.4-5.0); ANION GAP 8 (8-16); BLOOD UREA NITROGEN 30 MG/DL (7-18); BUN/CREATININE RATIO 21.3 (6.6-38.0); CALCIUM 9.2 MG/DL (8.5-10.1); CHLORIDE 103 MMOL/L (99-107); CREATININE 1.41 MG/DL (0.40-0.90); GLUCOSE 98 MG/DL (70-104); POTASSIUM 4.2 MMOL/L (3.5-5.1); SODIUM 144 MMOL/L (135-145); TOTAL CARBON DIOXIDE 32.7 MMOL/L (24-32); eGFR 36 ML/MIN
[2017-09-12 06:30] VITALS: BP 134/52
[2017-09-12] MEDS: furosemide 40mg/4ml inj IV SCH (08:50)
[2017-09-12] MEDS: potassium Cl 20 mEq SR tablet PO SCH ×2 (08:50→20:46)
[2017-09-12] MEDS: docusate sod 100mg capsule PO SCH ×2 (08:54→20:46)
[2017-09-12] MEDS: atorvastatin 20mg tablet PO SCH (08:54)
[2017-09-12] MEDS: estradiol 1mg tablet PO SCH (08:54)
[2017-09-12] MEDS: metoprolol tartrate 25mg tablet PO SCH ×2 (08:54→20:46)
[2017-09-12] MEDS: multivitamins, therapeutics tablet PO SCH (08:54)
[2017-09-12] MEDS: amiodarone 200mg tablet PO SCH ×2 (08:54→20:46)
[2017-09-12] MEDS: pantoprazole 40mg Tablet.DR PO SCH (08:54)
[2017-09-12] MEDS: aspirin 81mg tab.chew PO SCH (08:54)
[2017-09-12] MEDS: apixaban 5mg tablet PO SCH ×2 (08:54→20:46)
[2017-09-12] MEDS: Protein Shake (high protein) 240ml (8oz) cup PO SCH ×3 (08:59→18:04)
[2017-09-12 11:00] VITALS: BP 113/55
[2017-09-12 15:00] VITALS: BP 139/55
[2017-09-12 19:00] VITALS: BP 143/56
[2017-09-12] MEDS ORDERED: traZODone 50mg tablet PO PRN (19:45)
[2017-09-12] MEDS: furosemide 40mg tablet PO SCH (20:47)
[2017-09-12 22:00] VITALS: BP 134/67
[2017-09-13] MEDS: acetaminophen 325mg tablet PO PRN ×2 (01:25→07:51)
[2017-09-13 02:00] VITALS: BP 151/62
[2017-09-13 05:22] LABS: BASOPHILS % (AUTO) 0.3 % (0-1); EOSINOPHILS # (AUTO) 0.6 X10'3 (0-0.9); EOSINOPHILS % (AUTO) 5.1 % (0-6); HEMATOCRIT 28.5 % (35.0-45.0); HEMOGLOBIN 9.8 g/dl (12.0-16.0); LYMPHOCYTES # (AUTO) 1.8 X10'3 (1.1-4.8); LYMPHOCYTES % (AUTO) 14.5 % (21-51); MEAN CORPUSCULAR HEMOGLOBIN 31.2 PG (27.0-31.0); MEAN CORPUSCULAR HGB CONC 34.2 % (33.0-36.5); MEAN CORPUSCULAR VOLUME 91.2 FL (78-98); MONOCYTES # (AUTO) 0.7 X10'3 (0-0.9); MONOCYTES % (AUTO) 6.1 % (2-12); NEUTROPHILS # (AUTO) 9.1 X10'3 (1.8-7.7); PLATELET COUNT 319 X10'3 (140-440); RED BLOOD COUNT 3.13 X10'6 (4.20-5.60); RED CELL DISTRIBUTION WIDTH 16.2 % (11.5-14.5); WHITE BLOOD COUNT 12.2 X10'3 (4.5-11.0)
[2017-09-13 05:31] LABS: ALBUMIN 2.6 G/DL (3.4-5.0); ANION GAP 8 (8-16); BLOOD UREA NITROGEN 31 MG/DL (7-18); BUN/CREATININE RATIO 21.4 (6.6-38.0); CALCIUM 9.2 MG/DL (8.5-10.1); CHLORIDE 103 MMOL/L (99-107); CREATININE 1.45 MG/DL (0.40-0.90); GLUCOSE 103 MG/DL (70-104); POTASSIUM 4.1 MMOL/L (3.5-5.1); SODIUM 142 MMOL/L (135-145); TOTAL CARBON DIOXIDE 30.7 MMOL/L (24-32); eGFR 35 ML/MIN
[2017-09-13 06:30] VITALS: BP 132/69
[2017-09-13 06:56] VITALS: BP 132/69
[2017-09-13] MEDS: potassium Cl 20 mEq SR tablet PO SCH (07:53)
[2017-09-13] MEDS: furosemide 40mg tablet PO SCH (07:54)
[2017-09-13] MEDS: docusate sod 100mg capsule PO SCH (07:54)
[2017-09-13] MEDS: pantoprazole 40mg Tablet.DR PO SCH (07:54)
[2017-09-13] MEDS: multivitamins, therapeutics tablet PO SCH (07:54)
[2017-09-13] MEDS: metoprolol tartrate 25mg tablet PO SCH (07:54)
[2017-09-13] MEDS: atorvastatin 20mg tablet PO SCH (07:54)
[2017-09-13] MEDS: aspirin 81mg tab.chew PO SCH (07:54)
[2017-09-13] MEDS: estradiol 1mg tablet PO SCH (07:54)
[2017-09-13] MEDS: apixaban 5mg tablet PO SCH (07:54)
[2017-09-13] MEDS: amiodarone 200mg tablet PO SCH (07:54)
[2017-09-13] MEDS: Protein Shake (high protein) 240ml (8oz) cup PO SCH (07:57)
[2017-09-13] MEDS ORDERED: APIX5TAB3 PO (09:11)
[2017-09-13] MEDS ORDERED: FURO40TA4 PO (09:11)
[2017-09-13] MEDS ORDERED: POTA20TA10 PO (09:11)
== END 2017-09-13 11:15 | disposition home health service (06) | DRG 291 ==
LOC: ER 17:44 → ED HOLD 09-08 02:21 → PCU 3S 09-08 03:50
PROVIDERS: ADMIT Internal Medicine; ATTEND Internal Medicine
DX: I11.0 Hypertensive heart disease with heart failure (principal); J96.20 Acute and chronic respiratory failure, unspecified whether with hypoxia or hypercapnia; I47.2 Ventricular tachycardia; I48.92 Unspecified atrial flutter; I48.0 Paroxysmal atrial fibrillation; E83.42 Hypomagnesemia; I50.23 Acute on chronic systolic (congestive) heart failure; E87.6 Hypokalemia; E78.5 Hyperlipidemia, unspecified; F41.9 Anxiety disorder, unspecified; I25.10 Atherosclerotic heart disease of native coronary artery without angina pectoris; I25.5 Ischemic cardiomyopathy; K21.9 Gastro-esophageal reflux disease without esophagitis; K80.20 Calculus of gallbladder without cholecystitis without obstruction; I25.2 Old myocardial infarction; Z90.710 Acquired absence of both cervix and uterus; Z90.49 Acquired absence of other specified parts of digestive tract; Z95.1 Presence of aortocoronary bypass graft; Z95.2 Presence of prosthetic heart valve; Z88.0 Allergy status to penicillin; Z79.01 Long term (current) use of anticoagulants; Z79.02 Long term (current) use of antithrombotics/antiplatelets; Z79.82 Long term (current) use of aspirin; Z79.899 Other long term (current) drug therapy; Z86.73 Personal history of transient ischemic attack (TIA), and cerebral infarction without residual deficits; Z87.891 Personal history of nicotine dependence
CPT/HCPCS: 36415; 36600; 71045; 71046; 76604; 80048; 80053; 82803; 83735; 83880; 84100; 85018; 85025; 85610; 85730; 87070; 93005; 93306; 93970; 96374; 96375; 97110; 97116; 97161; 97530; 99285; J0282; J1940; J2001; J2060; J3475; J3490

== ENCOUNTER 2018-02-07 10:48 | Observation (INO) | payer MEDICARE, OTHER ==
[~2018-02-07] VITALS: Ht 170.2 cm; Wt 74.0 kg
[~2018-02-07 10:48] MED LIST changes: +AMIO200T40 PO; -AMIO200T57 PO; +APIX5TAB3 PO; +FURO40TA4 PO; -OMEP-50; +POTA20TA10 PO
[2018-02-07 12:00] VITALS: BP 99/53
[2018-02-07 13:00] VITALS: BP 104/46
[2018-02-07] MEDS ORDERED: ondansetron/PF 4mg/2ml inj IV PRN (13:05)
[2018-02-07] MEDS ORDERED: potassium Cl 40MEQ/NS 500ml 500 ML IV PRN ×2 (13:05)
[2018-02-07] MEDS ORDERED: acetaminophen 325mg tablet PO PRN ×2 (13:05)
[2018-02-07] MEDS ORDERED: magnesium 1gm/100ml D5W IVPB 100 ML IV PRN (13:05)
[2018-02-07] MEDS ORDERED: magnesium hydroxide 30ml (MOM) UD suspension PO PRN (13:05)
[2018-02-07] MEDS ORDERED: magnesium 4gm in 100ml NS 100 ML IV PRN (13:05)
[2018-02-07] MEDS ORDERED: potassium Cl 20 mEq SR tablet PO PRN ×2 (13:05)
[2018-02-07] MEDS ORDERED: magnesium Cl slow-release 64mg tablet PO PRN (13:05)
[2018-02-07] MEDS ORDERED: mag hydrox/Alum hydrox/simeth 30ml oral suspension PO PRN (13:05)
[2018-02-07] MEDS ORDERED: normal saline 500ml IV soln 500 ML IV ONE (13:05)
[2018-02-07] MEDS: normal saline 1000ml 1,000 ML IV SCH ×2 (13:57→20:39)
[2018-02-07 14:22] LABS: BASOPHILS % (AUTO) 0.3 % (0-1); EOSINOPHILS # (AUTO) 0.5 X10'3 (0-0.9); EOSINOPHILS % (AUTO) 4.1 % (0-6); HEMATOCRIT 27.3 % (35.0-45.0); HEMOGLOBIN 9.2 g/dl (12.0-16.0); LYMPHOCYTES # (AUTO) 1.2 X10'3 (1.1-4.8); LYMPHOCYTES % (AUTO) 10.1 % (21-51); MEAN CORPUSCULAR HEMOGLOBIN 31.1 PG (27.0-31.0); MEAN CORPUSCULAR HGB CONC 33.7 % (33.0-36.5); MEAN CORPUSCULAR VOLUME 92.3 FL (78-98); MEAN PLATELET VOLUME 9.4 FL (7.4-10.4); MONOCYTES # (AUTO) 1.1 X10'3 (0-0.9); MONOCYTES % (AUTO) 8.9 % (2-12); NEUTROPHILS % (AUTO) 76.6 % (42-75); PLATELET COUNT 221 X10'3 (140-440); RED BLOOD COUNT 2.96 X10'6 (4.20-5.60); WHITE BLOOD COUNT 11.8 X10'3 (4.5-11.0)
[2018-02-07 14:32] LABS: PARTIAL THROMBOPLASTIN TIME 25 SECONDS (22-32); PROTHROMBIN TIME 10.7 SECONDS (9.0-12.0)
[2018-02-07 14:43] LABS: ALANINE AMINOTRANSFERASE 29 U/L (12-78); ALBUMIN 2.7 G/DL (3.4-5.0); ALKALINE PHOSPHATASE 59 IU/L (46-116); ANION GAP 7 (8-16); ASPARTATE AMINO TRANSFERASE 21 U/L (10-37); BILIRUBIN,TOTAL 0.2 MG/DL (0.1-1.0); BLOOD UREA NITROGEN 25 MG/DL (7-18); BUN/CREATININE RATIO 14.9 (6.6-38.0); CALCIUM 8.4 MG/DL (8.5-10.1); CHLORIDE 106 MMOL/L (99-107); CREATININE 1.68 MG/DL (0.40-0.90); GLUCOSE 111 MG/DL (70-104); MAGNESIUM 1.6 MG/DL (1.5-2.4); PHOSPHORUS 3.7 MG/DL (2.3-4.5); POTASSIUM 3.8 MMOL/L (3.5-5.1); SODIUM 142 MMOL/L (135-145); TOTAL CARBON DIOXIDE 28.9 MMOL/L (24-32); TOTAL PROTEIN 5.5 G/DL (6.4-8.2); eGFR 29 ML/MIN
[2018-02-07 15:00] VITALS: BP 94/43
[2018-02-07 16:42] LABS: CLARITY,URINE CLEAR (Clear); COLOR,URINE GREEN (Yellow); GLUCOSE, URINE NEGATIVE (Neg); KETONES,URINE TRACE mg/dl (Neg); LEUKOCYTE ESTERASE ,URINE NEGATIVE (Neg); NITRITES, URINE NEGATIVE (Neg); OCCULT BLOOD,URINE NEGATIVE (Neg); PH,URINE 6.5 (4.8-8.0); PROTEIN,URINE NEGATIVE (Neg); UROBILINOGEN,URINE 0.2 E.U/dL (0.2-1.0)
[2018-02-07 16:55] LABS: UA COLLECTION TYPE VOIDED
[2018-02-07 19:00] VITALS: BP 105/46
[2018-02-07 20:00] VITALS: BP_SYST 91; BP_SYST 94; BP_SYST 95; BP_DIAS 45; BP_DIAS 46; BP_DIAS 53
[2018-02-07] MEDS: apixaban 5mg tablet PO SCH (20:26)
[2018-02-07] MEDS ORDERED: temazepam 15mg capsule PO PRN (21:00)
[2018-02-07] MEDS ORDERED: acetaminophen 325mg tablet PO ONE (21:20)
[2018-02-07 23:00] VITALS: BP 95/46
[2018-02-08] VITALS (9 sets, daily range): BP systolic 94–138; BP diastolic 41–64
[2018-02-08] MEDS: acetaminophen 325mg tablet PO PRN ×4 (03:34→20:55)
[2018-02-08] MEDS: normal saline 1000ml 1,000 ML IV SCH ×3 (04:24→20:54)
[2018-02-08 06:12] LABS: BASOPHILS % (AUTO) 0.4 % (0-1); EOSINOPHILS # (AUTO) 0.4 X10'3 (0-0.9); EOSINOPHILS % (AUTO) 6.6 % (0-6); HEMATOCRIT 22.1 % (35.0-45.0); HEMOGLOBIN 7.5 g/dl (12.0-16.0); LYMPHOCYTES # (AUTO) 0.6 X10'3 (1.1-4.8); LYMPHOCYTES % (AUTO) 10.9 % (21-51); MEAN CORPUSCULAR HEMOGLOBIN 31.2 PG (27.0-31.0); MEAN CORPUSCULAR HGB CONC 33.8 % (33.0-36.5); MEAN CORPUSCULAR VOLUME 92.2 FL (78-98); MEAN PLATELET VOLUME 9.5 FL (7.4-10.4); MONOCYTES # (AUTO) 0.4 X10'3 (0-0.9); MONOCYTES % (AUTO) 7.2 % (2-12); NEUTROPHILS # (AUTO) 4.4 X10'3 (1.8-7.7); NEUTROPHILS % (AUTO) 74.9 % (42-75); PLATELET COUNT 132 X10'3 (140-440); RED CELL DISTRIBUTION WIDTH 14.3 % (11.5-14.5); WHITE BLOOD COUNT 5.9 X10'3 (4.5-11.0)
[2018-02-08 06:28] LABS: ALANINE AMINOTRANSFERASE 23 U/L (12-78); ALBUMIN 2.4 G/DL (3.4-5.0); ALKALINE PHOSPHATASE 48 IU/L (46-116); ANION GAP 9 (8-16); ASPARTATE AMINO TRANSFERASE 21 U/L (10-37); BILIRUBIN,TOTAL 0.2 MG/DL (0.1-1.0); BLOOD UREA NITROGEN 22 MG/DL (7-18); CHLORIDE 109 MMOL/L (99-107); CHOL/HDL RATIO 2.3 (0.00-4.99); CHOLESTEROL 101 MG/DL (0-200); CREATININE 1.47 MG/DL (0.40-0.90); GLUCOSE 100 MG/DL (70-104); HDL CHOLESTEROL 43 MG/DL (35-60); LDL CHOLESTEROL 42 MG/DL (50-100); MAGNESIUM 1.7 MG/DL (1.5-2.4); POTASSIUM 4.2 MMOL/L (3.5-5.1); SODIUM 143 MMOL/L (135-145); TOTAL CARBON DIOXIDE 25.3 MMOL/L (24-32); TOTAL PROTEIN 4.9 G/DL (6.4-8.2); TRIGLYCERIDES 108 MG/DL (20-135); eGFR 34 ML/MIN
[2018-02-08] MEDS: K and/or MAG REPLACEMENT MC SCH (08:00)
[2018-02-08] MEDS: levoTHYROXINE 75mcg tablet PO SCH (08:13)
[2018-02-08] MEDS: apixaban 5mg tablet PO SCH ×2 (08:13→19:49)
[2018-02-08] MEDS: atorvastatin 20mg tablet PO SCH (08:13)
[2018-02-08] MEDS: aspirin 81mg tablet.DR PO SCH (08:14)
[2018-02-08] MEDS: Protein Smoothie (high protein) 240ml (8oz) cup PO SCH ×2 (13:00→18:00)
[2018-02-08 17:47] LABS: % IRON SATURATION 9 % (11-46); IRON 23 UG/DL (49-151); TOTAL IRON BINDING CAPACITY 247 UG/DL (259-388)
[2018-02-08 17:48] LABS: FERRITIN 50 NG/ML (8-252)
[2018-02-09] VITALS (15 sets, daily range): BP systolic 130–163; BP diastolic 52–76
[2018-02-09] MEDS: acetaminophen 325mg tablet PO PRN (02:13)
[2018-02-09 06:05] LABS: BASOPHILS % (AUTO) 0.3 % (0-1); EOSINOPHILS # (AUTO) 0.3 X10'3 (0-0.9); EOSINOPHILS % (AUTO) 6.1 % (0-6); HEMOGLOBIN 7.3 g/dl (12.0-16.0); LYMPHOCYTES # (AUTO) 0.7 X10'3 (1.1-4.8); LYMPHOCYTES % (AUTO) 14.8 % (21-51); MEAN CORPUSCULAR HGB CONC 33.5 % (33.0-36.5); MEAN CORPUSCULAR VOLUME 92.5 FL (78-98); MEAN PLATELET VOLUME 9.6 FL (7.4-10.4); MONOCYTES # (AUTO) 0.4 X10'3 (0-0.9); MONOCYTES % (AUTO) 7.1 % (2-12); NEUTROPHILS # (AUTO) 3.6 X10'3 (1.8-7.7); NEUTROPHILS % (AUTO) 71.7 % (42-75); PLATELET COUNT 137 X10'3 (140-440); RED BLOOD COUNT 2.35 X10'6 (4.20-5.60); RED CELL DISTRIBUTION WIDTH 14.1 % (11.5-14.5)
[2018-02-09 06:06] LABS: ALANINE AMINOTRANSFERASE 21 U/L (12-78); ALBUMIN 2.3 G/DL (3.4-5.0); ALBUMIN/GLOBULIN RATIO 0.9 (1.1-1.5); ALKALINE PHOSPHATASE 53 IU/L (46-116); ANION GAP 10 (8-16); ASPARTATE AMINO TRANSFERASE 20 U/L (10-37); BILIRUBIN,TOTAL 0.2 MG/DL (0.1-1.0); BLOOD UREA NITROGEN 15 MG/DL (7-18); BUN/CREATININE RATIO 12.6 (6.6-38.0); CALCIUM 8.2 MG/DL (8.5-10.1); CHLORIDE 111 MMOL/L (99-107); CREATININE 1.19 MG/DL (0.40-0.90); GLUCOSE 93 MG/DL (70-104); MAGNESIUM 1.8 MG/DL (1.5-2.4); SODIUM 144 MMOL/L (135-145); TOTAL CARBON DIOXIDE 23.3 MMOL/L (24-32); eGFR 44 ML/MIN
[2018-02-09 06:20] LABS: HEMATOCRIT 21.7 % (35.0-45.0)
[2018-02-09] MEDS: K and/or MAG REPLACEMENT MC SCH (08:00)
[2018-02-09] MEDS: atorvastatin 20mg tablet PO SCH (08:04)
[2018-02-09] MEDS: aspirin 81mg tablet.DR PO SCH (08:04)
[2018-02-09] MEDS: apixaban 5mg tablet PO SCH (08:04)
[2018-02-09] MEDS: levoTHYROXINE 75mcg tablet PO SCH (08:04)
[2018-02-09] MEDS: Protein Smoothie (high protein) 240ml (8oz) cup PO SCH (08:12)
[2018-02-09] MEDS: normal saline 1000ml 1,000 ML IV SCH (10:42)
[2018-02-09] MEDS ORDERED: APIX5TAB3 PO (22:19)
[2018-02-09] MEDS ORDERED: LEVO75TA56 PO (22:19)
[2018-02-09] MEDS ORDERED: ASPI-1265 PO (22:19)
== END 2018-02-09 16:10 | disposition home or self-care (01) ==
LOC: INTOOBSV 11:39 → PCU 3S 11:39
PROVIDERS: ADMIT Family Medicine; ATTEND Family Medicine
DX: R55 Syncope and collapse (principal); E03.9 Hypothyroidism, unspecified; I25.10 Atherosclerotic heart disease of native coronary artery without angina pectoris; I25.2 Old myocardial infarction; I34.0 Nonrheumatic mitral (valve) insufficiency; I48.0 Paroxysmal atrial fibrillation; K21.9 Gastro-esophageal reflux disease without esophagitis; N17.9 Acute kidney failure, unspecified; D62 Acute posthemorrhagic anemia; E43 Unspecified severe protein-calorie malnutrition; R53.1 Weakness; G90.8 Other disorders of autonomic nervous system; I50.9 Heart failure, unspecified; N18.3 Chronic kidney disease, stage 3 (moderate); I99.8 Other disorder of circulatory system; I63.8 Other cerebral infarction; Z79.01 Long term (current) use of anticoagulants; Z85.3 Personal history of malignant neoplasm of breast; Z86.73 Personal history of transient ischemic attack (TIA), and cerebral infarction without residual deficits; Z95.1 Presence of aortocoronary bypass graft; Z90.710 Acquired absence of both cervix and uterus
CPT/HCPCS: 36415; 36430; 70450; 71045; 80053; 80061; 81003; 82728; 83540; 83550; 83735; 83880; 84100; 84443; 84484; 85025; 85610; 85730; 86885; 86900; 86901; 86920; 87070; 93005; 97116; 97161; G0378; J7030; P9016; 96360; 96361

== ENCOUNTER 2018-02-09 18:56 | Inpatient (IN) | payer MEDICARE, OTHER ==
[~2018-02-09] VITALS: Ht 170.2 cm; Wt 74.2 kg
[~2018-02-09 18:56] MED LIST changes: -AMIO200T40 PO; -CLOP75TA35 PO; -COL100C PO; -ESTR1TAB28; -MELO-100; -POTA20TA10 PO
[2018-02-09 19:32] LABS: BASOPHILS % (AUTO) 0.1 % (0-1); EOSINOPHILS # (AUTO) 0.4 X10'3 (0-0.9); EOSINOPHILS % (AUTO) 3.6 % (0-6); HEMATOCRIT 33.2 % (35.0-45.0); HEMOGLOBIN 11.3 g/dl (12.0-16.0); LYMPHOCYTES # (AUTO) 0.8 X10'3 (1.1-4.8); LYMPHOCYTES % (AUTO) 7.5 % (21-51); MEAN CORPUSCULAR VOLUME 91.2 FL (78-98); MEAN PLATELET VOLUME 9.4 FL (7.4-10.4); MONOCYTES # (AUTO) 0.6 X10'3 (0-0.9); NEUTROPHILS # (AUTO) 9.4 X10'3 (1.8-7.7); NEUTROPHILS % (AUTO) 83.8 % (42-75); PLATELET COUNT 227 X10'3 (140-440); RED BLOOD COUNT 3.64 X10'6 (4.20-5.60); RED CELL DISTRIBUTION WIDTH 15.4 % (11.5-14.5); WHITE BLOOD COUNT 11.3 X10'3 (4.5-11.0)
[2018-02-09 19:43] LABS: PARTIAL THROMBOPLASTIN TIME 28 SECONDS (22-32); PROTHROMBIN TIME 10.1 SECONDS (9.0-12.0)
[2018-02-09 19:50] LABS: ALANINE AMINOTRANSFERASE 38 U/L (12-78); ALBUMIN 2.9 G/DL (3.4-5.0); ALBUMIN/GLOBULIN RATIO 0.9 (1.1-1.5); ALKALINE PHOSPHATASE 86 IU/L (46-116); ANION GAP 10 (8-16); ASPARTATE AMINO TRANSFERASE 35 U/L (10-37); BILIRUBIN,TOTAL 0.4 MG/DL (0.1-1.0); BLOOD UREA NITROGEN 17 MG/DL (7-18); BUN/CREATININE RATIO 14.5 (6.6-38.0); CALCIUM 8.6 MG/DL (8.5-10.1); CHLORIDE 106 MMOL/L (99-107); CREATININE 1.17 MG/DL (0.40-0.90); GLUCOSE 110 MG/DL (70-104); POTASSIUM 4.1 MMOL/L (3.5-5.1); SODIUM 141 MMOL/L (135-145); TOTAL CARBON DIOXIDE 25.4 MMOL/L (24-32); TOTAL PROTEIN 6.3 G/DL (6.4-8.2); eGFR 45 ML/MIN
[2018-02-09] MEDS ORDERED: APIX5TAB3 PO (22:19)
[2018-02-09] MEDS ORDERED: LEVO75TA56 PO (22:19)
[2018-02-09] MEDS ORDERED: ASPI-1265 PO (22:19)
[2018-02-10] VITALS (7 sets, daily range): BP systolic 126–174; BP diastolic 59–71
[2018-02-10] MEDS ORDERED: mag hydrox/Alum hydrox/simeth 30ml oral suspension PO PRN (01:00)
[2018-02-10] MEDS ORDERED: magnesium hydroxide 30ml (MOM) UD suspension PO PRN (01:00)
[2018-02-10] MEDS ORDERED: morphine 2 MG/ML inj. syringe IV PRN ×2 (01:00)
[2018-02-10] MEDS ORDERED: ondansetron/PF 4mg/2ml inj IV PRN (01:00)
[2018-02-10] MEDS ORDERED: acetaminophen 325mg tablet PO PRN (01:00)
[2018-02-10] MEDS ORDERED: docusate sod 100mg capsule PO PRN (01:00)
[2018-02-10 01:22] LABS: CLARITY,URINE CLEAR (Clear); COLOR,URINE STRAW (Yellow); GLUCOSE, URINE NEGATIVE (Neg); KETONES,URINE NEGATIVE (Neg); LEUKOCYTE ESTERASE ,URINE NEGATIVE (Neg); NITRITES, URINE NEGATIVE (Neg); OCCULT BLOOD,URINE NEGATIVE (Neg); PH,URINE 5.5 (4.8-8.0); PROTEIN,URINE NEGATIVE (Neg); UROBILINOGEN,URINE 0.2 E.U/dL (0.2-1.0)
[2018-02-10 01:27] LABS: UA COLLECTION TYPE CLN CATCH MIDSTREAM
[2018-02-10] MEDS: metoprolol tartrate 25mg tablet PO SCH ×3 (02:41→19:44)
[2018-02-10] MEDS: levoTHYROXINE 75mcg tablet PO SCH (07:23)
[2018-02-10] MEDS: furosemide 40mg tablet PO SCH (07:24)
[2018-02-10] MEDS: apixaban 5mg tablet PO SCH ×2 (07:24→19:43)
[2018-02-10] MEDS: pantoprazole 40mg Tablet.DR PO SCH (07:25)
[2018-02-10] MEDS: acetaminophen 325mg tablet PO PRN ×2 (12:34→23:49)
[2018-02-10] MEDS ORDERED: atorvastatin 20mg tablet PO SCH (20:00)
[2018-02-11 02:00] VITALS: BP 140/59
[2018-02-11 06:00] VITALS: BP 137/60
[2018-02-11 06:05] LABS: BASOPHILS % (AUTO) 0.3 % (0-1); EOSINOPHILS # (AUTO) 0.4 X10'3 (0-0.9); HEMATOCRIT 29.4 % (35.0-45.0); HEMOGLOBIN 9.8 g/dl (12.0-16.0); LYMPHOCYTES # (AUTO) 1.1 X10'3 (1.1-4.8); LYMPHOCYTES % (AUTO) 17.5 % (21-51); MEAN CORPUSCULAR HEMOGLOBIN 30.7 PG (27.0-31.0); MEAN CORPUSCULAR HGB CONC 33.4 % (33.0-36.5); MEAN CORPUSCULAR VOLUME 91.8 FL (78-98); MEAN PLATELET VOLUME 8.9 FL (7.4-10.4); MONOCYTES # (AUTO) 0.6 X10'3 (0-0.9); MONOCYTES % (AUTO) 10.1 % (2-12); NEUTROPHILS # (AUTO) 4.1 X10'3 (1.8-7.7); NEUTROPHILS % (AUTO) 65.1 % (42-75); PLATELET COUNT 184 X10'3 (140-440); RED CELL DISTRIBUTION WIDTH 14.8 % (11.5-14.5); WHITE BLOOD COUNT 6.3 X10'3 (4.5-11.0)
[2018-02-11 06:21] LABS: ALBUMIN 2.4 G/DL (3.4-5.0); ANION GAP 7 (8-16); BLOOD UREA NITROGEN 20 MG/DL (7-18); BUN/CREATININE RATIO 14.2 (6.6-38.0); CALCIUM 8.7 MG/DL (8.5-10.1); CHLORIDE 107 MMOL/L (99-107); CREATININE 1.41 MG/DL (0.40-0.90); GLUCOSE 93 MG/DL (70-104); POTASSIUM 3.8 MMOL/L (3.5-5.1); SODIUM 143 MMOL/L (135-145); eGFR 36 ML/MIN
[2018-02-11] MEDS: metoprolol tartrate 25mg tablet PO SCH (08:44)
[2018-02-11] MEDS: apixaban 5mg tablet PO SCH (08:44)
[2018-02-11] MEDS: furosemide 40mg tablet PO SCH (08:44)
[2018-02-11] MEDS: levoTHYROXINE 75mcg tablet PO SCH (08:44)
[2018-02-11] MEDS: pantoprazole 40mg Tablet.DR PO SCH (08:49)
== END 2018-02-11 11:45 | disposition home or self-care (01) | DRG 641 ==
LOC: ER 18:56 → ED HOLD 02-10 01:27 → PCU 3S 02-10 02:09
PROVIDERS: ADMIT Internal Medicine; ATTEND Family Medicine
DX: E86.0 Dehydration (principal); D62 Acute posthemorrhagic anemia; I50.20 Unspecified systolic (congestive) heart failure; R53.1 Weakness; C50.919 Malignant neoplasm of unspecified site of unspecified female breast; E03.9 Hypothyroidism, unspecified; K21.9 Gastro-esophageal reflux disease without esophagitis; I25.10 Atherosclerotic heart disease of native coronary artery without angina pectoris; K80.20 Calculus of gallbladder without cholecystitis without obstruction; I48.0 Paroxysmal atrial fibrillation; N28.9 Disorder of kidney and ureter, unspecified; Z95.1 Presence of aortocoronary bypass graft; Z88.0 Allergy status to penicillin; Z88.1 Allergy status to other antibiotic agents; Z88.2 Allergy status to sulfonamides; Z79.01 Long term (current) use of anticoagulants; Z79.890 Hormone replacement therapy; Z86.73 Personal history of transient ischemic attack (TIA), and cerebral infarction without residual deficits; Z87.891 Personal history of nicotine dependence
CPT/HCPCS: 36415; 71045; 80048; 80053; 81003; 84443; 84484; 85025; 85610; 85730; 97116; 97161; 99285; Q2037